=== PATIENT | female | born 1985 | race American Indian/Alaskan Native ===

== ENCOUNTER 2018-01-12 20:52 | Emergency (ER) | payer OTHER ==
[2018-01-12] MEDS ORDERED: Sodium Chloride 0.9% 10 ML Syringe FLUSH PRN (21:22)
[2018-01-12] MEDS ORDERED: Ketorolac 30 MG/ML SDV IVPUSH ONE (21:22)
[2018-01-12] MEDS ORDERED: Ondansetron 4 MG/2 ML SDV IVPUSH ONE (21:22)
[2018-01-12] MEDS ORDERED: Sodium Chloride 0.9% 2.5 ML Syringe FLUSH PRN (21:22)
[2018-01-12] MEDS ORDERED: Sodium Chloride 0.9% 1,000 ML IV ONE (21:22)
[2018-01-12] MEDS ORDERED: Morphine 10 MG/ML Syringe IVPUSH ONE ×2 (21:26→23:03)
--- NOTE | 2018-01-12 21:26 | EDM.PDOC ---
ED HPI GENERAL MEDICAL PROBLEM - General Chief Complaint: Abdominal Pain Stated Complaint: PT HAS STOMACH PAINS Time Seen by Provider: 01/12/18 21:14 - History of Present Illness INITIAL COMMENTS - FREE TEXT/NARRATIVE: HISTORY AND PHYSICAL: History of present illness: The patient is a 32-year-old female who presents with 3 days of nausea without vomiting diarrhea, 2-3 times a day and lower abdominal pain which she says is more on the right and radiates to her back. The patient says she started her period and she frequently gets diarrhea with her. So she wasn't concerned about that but the pain is different than her usual cramping pain. The patient's that she has had problems with her ovaries in the past and was working with a physician until he retired and never followed up afterwards. She has not had fever or flank pain and no urinary symptoms. She has had no vaginal discharge she has no upper abdominal pain. She is very vague with her history but does tell me that she had a gastric bypass and C-sections in the past but otherwise no other abdominal surgeries. The patient is not taking anything at home for the discomfort. She says that the pain will intermittently "double her over". The patient denies any fever chills cough runny nose or sore throat Review of systems: As per history of present illness and below otherwise all systems reviewed and negative. Past medical history: As per history of present illness and as reviewed below otherwise noncontributory. Surgical history: As per history of present illness and as reviewed below otherwise noncontributory. Social history: No reported history of drug or alcohol abuse. Family history: As per history of present illness and as reviewed below otherwise noncontributory. Physical exam: General: Well-developed well-nourished female who looks nontoxic of my evaluation vital signs are noted by me. HEENT: Atraumatic, normocephalic, pupils reactive, negative for conjunctival pallor or scleral icterus, mucous membranes moist, throat clear, neck supple, nontender, trachea midline. Lungs: Clear to auscultation, breath sounds equal bilaterally, chest nontender. Heart: S1S2, regular rate and rhythm no overt murmurs Abdomen: Soft, nondistended, hypoactive bowel sounds and there is minimal tenderness in the right lower quadrant on deep palpation without midline or left lower quadrant tenderness. There is no rebound or guarding. Negative for masses or hepatosplenomegaly. Negative for costovertebral tenderness. Pelvis: Stable nontender. Genitourinary: Deferred. Rectal: Deferred. Extremities: Atraumatic, negative for cords or calf pain. Neurovascular unremarkable. Neuro: Awake, alert, oriented. Cranial nerves II through XII unremarkable. Cerebellum unremarkable. Motor and sensory unremarkable throughout. Exam nonfocal. Diagnostics: CBC CMP UA UCG CT scan of the abdomen and pelvis Therapeutics: IV fluids Zofran and morphine Patient and significant other bedside are aware of all testing results and this case has also been discussed with Dr. Davis at [phone]. He wants the patient to be given pain medicines for home and eat a low-fat diet and he will follow her in the clinic. Labs are all normal and her pain is controllable with medications he feels that this can be addressed on an outpatient basis. I will give the patient information to call the clinic and I've discussed with her reasons to return. I will give her Zofran and [place] via [employer] for home Impression: Cholelithiasis/biliary colic Definitive disposition and diagnosis as appropriate pending reevaluation and review of above. Abdominal Pain Score (Numeric/FACES): 10 - Related Data Allergies Allergy/AdvReac Type Severity Reaction Status Date / Time No Known Allergies Allergy Verified 01/12/18 21:12 Home Meds: Home Meds Drospirenone/Ethinyl Estradiol [Kate 28] 1 tab PO DAILY 09/08/14 [History] DULoxetine HCl [Duloxetine HCl] 30 mg PO DAILY 07/09/15 [History] traZODone 50 mg PO BEDTIME 01/12/18 [History] Past Medical History - Past Health History Medical/Surgical History: Denies Medical/Surgical History - Past Surgical History Other GI Surgeries/Procedures: Gastric bypass surgery Social & Family History - Tobacco Use Smoking Status *Q: Current Every Day Smoker Years of Tobacco use: 10 Packs/Tins Daily: 0.5 - Alcohol Use Days Per Week of Alcohol Use: 7 Number of Drinks Per Day: 25 Total Drinks Per Week: 175 - Recreational Drug Use Recreational Drug Use: No ED ROS GENERAL - Review of Systems Review Of Systems: ROS reveals no pertinent complaints other than HPI. ED EXAM, GENERAL - Physical Exam Exam: See Below (see dictation) Course - Vital Signs Last Recorded V/S: Last Vital Signs Temp 36.3 C 01/12/18 21:14 Pulse 81 01/12/18 21:14 Resp 18 01/12/18 21:14 BP 142/75 H 01/12/18 21:14 Pulse Ox 97 01/12/18 21:14 - Orders/Labs/Meds Orders: Active Orders 24 hr Category Date Time Status Abdomen Pelvis w Cont [CT] Stat Exams 01/12/18 21:22 Taken HCG QUALITATIVE,URINE [URCHEM] Stat Lab 01/12/18 21:26 Ordered UA W/MICROSCOPIC [URIN] Stat Lab 01/12/18 21:26 Ordered Sodium Chloride 0.9% [Saline Flush] Med 01/12/18 21:22 Active 10 ml FLUSH ASDIRECTED PRN Sodium Chloride 0.9% [Saline Flush] Med 01/12/18 21:22 Active 2.5 ml FLUSH ASDIRECTED PRN Saline Lock Insert [OM.PC] Stat Oth 01/12/18 21:21 Ordered Medication Orders Sodium Chloride (Saline Flush) 10 ml FLUSH ASDIRECTED PRN PRN Reason: Keep Vein Open Last Admin: 01/12/18 21:39 Dose: 10 ml Sodium Chloride (Saline Flush) 2.5 ml FLUSH ASDIRECTED PRN PRN Reason: Keep Vein Open Last Admin: 01/12/18 21:39 Dose: 2.5 ml Labs: Laboratory Tests 01/12/18 01/12/18 01/12/18 Range/Units 21:26 21:26 21:34 WBC 6.96 (4.0-11.0) K/uL RBC 5.10 (4.30-5.90) M/uL Hgb 11.9 L (12.0-16.0) g/dL Hct 37.4 (36.0-46.0) % MCV 73.3 L (80.0-98.0) fL MCH 23.3 L (27.0-32.0) pg MCHC 31.8 (31.0-37.0) g/dL RDW Std Deviation 46.8 (28.0-62.0) fl RDW Coeff of Briana 17 H (11.0-15.0) % Plt Count 318 (150-400) K/uL MPV 10.60 (7.40-12.00) fL Neut % (Auto) 48.3 (48.0-80.0) % Lymph % (Auto) 41.7 H (16.0-40.0) % Stokes % (Auto) 6.3 (0.0-15.0) % Eos % (Auto) 2.7 (0.0-7.0) % Baso % (Auto) 1.0 (0.0-1.5) % Neut # (Auto) 3.4 (1.4-5.7) K/uL Lymph # (Auto) 2.9 H (0.6-2.4) K/uL Stokes # (Auto) 0.4 (0.0-0.8) K/uL Eos # (Auto) 0.2 (0.0-0.7) K/uL Baso # (Auto) 0.1 (0.0-0.1) K/uL Nucleated RBC % 0.0 /100WBC Nucleated RBCs # 0 K/uL Sodium (136-145) mmol/L Potassium (3.5-5.1) mmol/L Chloride (98-107) mmol/L Carbon Dioxide (21.0-32.0) mmol/L BUN (7.0-18.0) mg/dL Creatinine (0.6-1.0) mg/dL Est Cr Clr Drug Dosing mL/min Estimated GFR (MDRD) ml/min Glucose (74-106) mg/dL Calcium (8.5-10.1) mg/dL Total Bilirubin (0.2-1.0) mg/dL AST (15-37) IU/L ALT (14-63) IU/L Alkaline Phosphatase (46-116) U/L Total Protein (6.4-8.2) g/dL Albumin (3.4-5.0) g/dL Globulin (2.0-3.5) g/dL Albumin/Globulin Ratio (1.3-2.8) Urine Color YELLOW Urine Appearance CLEAR Urine pH 7.0 (5.0-8.0) Ur Specific [place] 1.020 (1.001-1.035) Urine Protein NEGATIVE (NEGATIVE) mg/dL Urine Glucose (UA) NEGATIVE (NEGATIVE) mg/dL Urine Ketones NEGATIVE (NEGATIVE) mg/dL Urine Occult Blood NEGATIVE (NEGATIVE) Urine Nitrite NEGATIVE (NEGATIVE) Urine Bilirubin NEGATIVE (NEGATIVE) Urine Urobilinogen 1.0 (<2.0) EU/dL Ur Leukocyte Esterase NEGATIVE (NEGATIVE) Urine RBC 0-2 (0-2/HPF) Urine WBC 2-4 (0-5/HPF) Ur Epithelial Cells FEW (NONE-FEW) Urine Bacteria FEW (NEGATIVE) Urine Mucus MODERATE (NONE-MOD) Urine HCG, Qual NEGATIVE (NEGATIVE) 01/12/18 Range/Units 21:34 WBC (4.0-11.0) K/uL RBC (4.30-5.90) M/uL Hgb (12.0-16.0) g/dL Hct (36.0-46.0) % MCV (80.0-98.0) fL MCH (27.0-32.0) pg MCHC (31.0-37.0) g/dL RDW Std Deviation (28.0-62.0) fl RDW Coeff of Briana (11.0-15.0) % Plt Count (150-400) K/uL MPV (7.40-12.00) fL Neut % (Auto) (48.0-80.0) % Lymph % (Auto) (16.0-40.0) % Stokes % (Auto) (0.0-15.0) % Eos % (Auto) (0.0-7.0) % Baso % (Auto) (0.0-1.5) % Neut # (Auto) (1.4-5.7) K/uL Lymph # (Auto) (0.6-2.4) K/uL Stokes # (Auto) (0.0-0.8) K/uL Eos # (Auto) (0.0-0.7) K/uL Baso # (Auto) (0.0-0.1) K/uL Nucleated RBC % /100WBC Nucleated RBCs # K/uL Sodium 138 (136-145) mmol/L Potassium 4.4 (3.5-5.1) mmol/L Chloride 104 (98-107) mmol/L Carbon Dioxide 23.7 (21.0-32.0) mmol/L BUN 18 (7.0-18.0) mg/dL Creatinine 0.7 (0.6-1.0) mg/dL Est Cr Clr Drug Dosing 109.01 mL/min Estimated GFR (MDRD) > 60.0 ml/min Glucose 92 (74-106) mg/dL Calcium 8.7 (8.5-10.1) mg/dL Total Bilirubin 0.2 (0.2-1.0) mg/dL AST 20 (15-37) IU/L ALT 18 (14-63) IU/L Alkaline Phosphatase 73 (46-116) U/L Total Protein 7.7 (6.4-8.2) g/dL Albumin 3.7 (3.4-5.0) g/dL Globulin 4.0 H (2.0-3.5) g/dL Albumin/Globulin Ratio 0.9 L (1.3-2.8) Urine Color Urine Appearance Urine pH (5.0-8.0) Ur Specific [place] (1.001-1.035) Urine Protein (NEGATIVE) mg/dL Urine Glucose (UA) (NEGATIVE) mg/dL Urine Ketones (NEGATIVE) mg/dL Urine Occult Blood (NEGATIVE) Urine Nitrite (NEGATIVE) Urine Bilirubin (NEGATIVE) Urine Urobilinogen (<2.0) EU/dL Ur Leukocyte Esterase (NEGATIVE) Urine RBC (0-2/HPF) Urine WBC (0-5/HPF) Ur Epithelial Cells (NONE-FEW) Urine Bacteria (NEGATIVE) Urine Mucus (NONE-MOD) Urine HCG, Qual (NEGATIVE) Meds: Medications Generic Name Dose Route Start Last Admin Trade Name Freq PRN Reason Stop Dose Admin Sodium Chloride 10 ml 01/12/18 21:22 01/12/18 21:39 Saline Flush FLUSH 10 ml ASDIRECTED PRN Administration Keep Vein Open Sodium Chloride 2.5 ml 01/12/18 21:22 01/12/18 21:39 Saline Flush FLUSH 2.5 ml ASDIRECTED PRN Administration Keep Vein Open Discontinued Medications Generic Name Dose Route Start Last Admin Trade Name Freq PRN Reason Stop Dose Admin Sodium Chloride 1,000 mls @ 999 mls/hr 01/12/18 21:22 01/12/18 21:39 Normal Saline IV 01/12/18 22:22 999 mls/hr STAT ONE Administration Iopamidol 100 ml 01/12/18 22:25 01/12/18 22:26 Isovue Multipack-370 (76%) IVPUSH 04/04/18 22:26 100 ml ONETIME ONE Administration Ketorolac Tromethamine 30 mg 01/12/18 21:22 01/12/18 21:40 Toradol IVPUSH 01/12/18 21:23 Not Given ONETIME ONE Morphine Sulfate 5 mg 01/12/18 21:26 01/12/18 21:39 Morphine IVPUSH 01/12/18 21:27 5 mg ONETIME ONE Administration Morphine Sulfate 5 mg 01/12/18 23:03 Morphine IVPUSH 01/12/18 23:04 ONETIME ONE Ondansetron HCl 4 mg 01/12/18 21:22 01/12/18 21:39 Zofran IVPUSH 01/12/18 21:23 4 mg ONETIME ONE Administration Departure - Departure Time of Disposition: 23:11 Disposition: Home, Self-Care 01 Condition: Good Clinical Impression: Biliary colic Cholelithiasis Qualifiers: Cholelithiasis location: gallbladder Cholecystitis presence: without cholecystitis Biliary obstruction: without biliary obstruction Qualified Code(s) : K80.20 - Calculus of gallbladder without cholecystitis without obstruction - Discharge Information Referrals: PCP,None [Primary Care Provider] - Forms: ED Department Discharge Additional Instructions: The following information is given to patients seen in the emergency department who are being discharged to home. This information is to outline your options for follow-up care. We provide all patients seen in our emergency department with a follow-up referral. The need for follow-up, as well as the timing and circumstances, are variable depending upon the specifics of your emergency department visit. If you don't have a primary care physician on staff, we will provide you with a referral. We always advise you to contact your personal physician following an emergency department visit to inform them of the circumstance of the visit and for follow-up with them and/or the need for any referrals to a consulting specialist. The emergency department will also refer you to a specialist when appropriate. This referral assures that you have the opportunity for followup care with a specialist. All of these measure are taken in an effort to provide you with optimal care, which includes your followup. Under all circumstances we always encourage you to contact your private physician who remains a resource for coordinating your care. When calling for followup care, please make the office aware that this follow-up is from your recent emergency room visit. If for any reason you are refused follow-up, please contact the [facility] emergency department at and ask to speak to the emergency department charge nurse. [facility] [address] [place] [id number] Please call the clinic at 8 AM in the morning to schedule an appointment with Dr. Davis as we discussed. Please eat a low-fat diet and push fluids and small bites of bland foods. Use Zofran and [place] your given B Insty Meds as needed and return to ER as needed and as discussed. - My Orders Last 24 Hours: My Active Orders 01/12/18 21:21 Saline Lock Insert [OM.PC] Stat 01/12/18 21:22 Abdomen Pelvis w Cont [CT] Stat Sodium Chloride 0.9% [Saline Flush] 10 ml FLUSH ASDIRECTED PRN Sodium Chloride 0.9% [Saline Flush] 2.5 ml FLUSH ASDIRECTED PRN 01/12/18 21:26 HCG QUALITATIVE,URINE [URCHEM] Stat UA W/MICROSCOPIC [URIN] Stat - Assessment/Plan Last 24 Hours: My Active Orders 01/12/18 21:21 Saline Lock Insert [OM.PC] Stat 01/12/18 21:22 Abdomen Pelvis w Cont [CT] Stat Sodium Chloride 0.9% [Saline Flush] 10 ml FLUSH ASDIRECTED PRN Sodium Chloride 0.9% [Saline Flush] 2.5 ml FLUSH ASDIRECTED PRN 01/12/18 21:26 HCG QUALITATIVE,URINE [URCHEM] Stat UA W/MICROSCOPIC [URIN] Stat
[2018-01-12 22:02] LABS: CHLORIDE,CL 104 mmol/L (98-107); SODIUM,NA 138 mmol/L (136-145)
[2018-01-12] MEDS ORDERED: Iopamidol 755 MG/ML 200 ML Multipack Bottle IVPUSH ONE (22:25)
[2018-01-12 23:40] VITALS: BP 123/77
--- NOTE | 2018-01-13 10:23 | CT ---
EXAM DATE: 01/12/18 PATIENT'S AGE: 32 Patient: KIERA BUSBY Facility: [place], [place] Site . Site : [id number] Study: CT Abdomen/Pelvis [id number]/4/2018 10:32:51 PM Ordering Physician: Naomie Guzman Final Report: INDICATION: Abdominal pain with nausea TECHNIQUE: CT abdomen and pelvis acquired with IV contrast. 100 cc Isovue 370 COMPARISON: 09/06/2012 FINDINGS: Lower chest: Unremarkable. Liver: Unremarkable. Spleen: Unremarkable. Pancreas: Unremarkable. Gallbladder and bile ducts: The gallbladder is distended with sludge and multiple small gallstones. No gallbladder wall thickening. Dilatation of the intra hepatic biliary ducts and common bile duct. No obvious obstructing calculi. If LFTs and alkaline phosphatase are elevated, consider MRCP. Kidneys: Unremarkable. Adrenal glands: Unremarkable. GI tract: Evidence of prior bariatric surgery. Jany fecal retention. Appendix is normal. Vascular structures: Unremarkable. Lymph nodes: Unremarkable. Miscellaneous: Unremarkable. No free air or significant free fluid. Pelvic Organs: Unremarkable. Bones: Unremarkable for age. IMPRESSION: The gallbladder is distended with sludge and multiple small gallstones. No gallbladder wall thickening or pericholecystic fluid. Mild dilatation of the intrahepatic biliary ducts and common bile duct but no obvious obstructing calculi or stricture. Right upper quadrant ultrasound may be helpful to further characterize the patient has right upper quadrant pain. Correlate with abnormal LFTs and alkaline phosphatase. If these values are elevated, consider MRCP. Dictated by Randell Deng MD @ 01/12/2018 10:50:43 PM Dictated by: Randell Deng MD @ 01/12/2018 22:50:49 (Electronic Signature) Report Signed by Proxy. CAORLINA
== END 2018-01-12 23:29 | disposition home or self-care (01) ==
LOC: MW.ED 20:52
DX: K80.70 Calculus of gallbladder and bile duct without cholecystitis without obstruction (principal); F17.210 Nicotine dependence, cigarettes, uncomplicated; Z79.899 Other long term (current) drug therapy
CPT/HCPCS: 36415; 74177; 80053; 81001; 81025; 85025; 96361; 96374; 96375; 96376; 99284; J2270; J2405; J7040; Q9967; 99283

== ENCOUNTER 2018-02-14 06:49 | Day surgery (SDC) | payer OTHER ==
[~2018-02-14 06:49] MED LIST: Lactated Ringers 1,000 ML IV SCH; cefOXitin 2 GM in Premix Bag 1 BAG IV ONE
[2018-02-14] MEDS ORDERED: Scopolamine 1.5 MG Transdermal Patch TRDERM PRN (07:10)
--- NOTE | 2018-02-14 07:14 | PCM.PREANE ---
Preanesthetic Assessment - Anesthesia/Transfusion/Family Hx Anesthesia History: Prior Anesthesia Without Reaction Family History of Anesthesia Reaction: No Transfusion History: Prior Transfusion Without Reaction Intubation History: Unknown - Review of Systems General: No Symptoms Pulmonary: No Symptoms Cardiovascular: No Symptoms Gastrointestinal: Abdominal Pain Neurological: No Symptoms Other: Reports: None - Physical Assessment Height: 1.68 m Weight: 87.543 kg ASA Class: 2 Mental Status: Alert & Oriented x3 Airway Class: Mallampati = 2 Dentition: Reports: Normal Dentition, Broken Tooth/Teeth (small chip uppr front incisor) Thyro-Mental Finger Breadths: 3 Mouth Opening Finger Breadths: 3 ROM/Head Extension: Full Lungs: Clear to Auscultation, Normal Respiratory Effort Cardiovascular: Regular Rate, Regular Rhythm - Lab Values: Laboratory Last Values Urine HCG, Qual NEGATIVE (NEGATIVE) 02/14/18 06:50 - Allergies Allergies/Adverse Reactions: Allergies Allergy/AdvReac Type Severity Reaction Status Date / Time No Known Allergies Allergy Verified 02/08/18 10:47 - Blood Blood Available: No - Anesthesia Plan Pre-Op Medication Ordered: None - Acknowledgements Anesthesia Type Planned: General Anesthesia Pt an Appropriate Candidate for the Planned Anesthesia: Yes Alternatives and Risks of Anesthesia Discussed w Pt/Guardian: Yes Pt/Guardian Understands and Agrees with Anesthesia Plan: Yes PreAnesthesia Questionnaire - Past Health History Medical/Surgical History: Denies Medical/Surgical History HEENT History: Reports: Other (See Below) Other HEENT History: wears glasses Gastrointestinal History: Reports: None Genitourinary History: Reports: None 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: Neurological History: Reports: Other (See Below) (h/o migraines, not any more) Psychiatric History: Reports: Anxiety, Depression, Suicide Attempt Endocrine/Metabolic History: Reports: Obesity/BMI 30+ Hematologic History: Reports: Anemia, Blood Transfusion(s) - Past Surgical History Head Surgeries/Procedures: Reports: None GI Surgical History: Reports: Bariatric Procedure Female Surgical History: Reports: Section (x2) - SUBSTANCE USE Smoking Status *Q: Current Every Day Smoker Tobacco Use Within Last Twelve Months: Cigarettes Days Per Week of Alcohol Use: 7 Number of Drinks Per Day: 25 Total Drinks Per Week: 175 Recreational Drug Use History: No - HOME MEDS Home Medications: Home Meds Drospirenone/Ethinyl Estradiol [Kate 28] 1 tab PO DAILY 09/08/14 [History] DULoxetine HCl [Duloxetine HCl] 20 mg PO DAILY 07/09/15 [History] traZODone 100 mg PO BEDTIME 01/12/18 [History] Ibuprofen 1 - 2 tab PO ASDIRECTED PRN 02/08/18 [History] Ondansetron [Zofran ODT] 4 mg SL ASDIRECTED PRN 02/08/18 [History] - CURRENT (IN HOUSE) MEDS Current Meds: Current Medications Lactated Ringer's (Ringers, Lactated) 1,000 mls @ 125 mls/hr IV ASDIRECTED MAY Discontinued Medications Cefoxitin Sodium 2 gm/ Premix 50 mls @ 100 mls/hr IV ONETIME ONE Stop: 02/14/18 06:29
[2018-02-14] MEDS ORDERED: Rocuronium 10 MG/ML 10 ML Syringe ONE (07:26)
[2018-02-14] MEDS ORDERED: Lidocaine 2% 5 ML SDV ONE (07:26)
[2018-02-14] MEDS ORDERED: Ondansetron 4 MG/2 ML SDV ONE (07:26)
[2018-02-14] MEDS ORDERED: Propofol 200 MG/20 ML SDV ONE (07:27)
[2018-02-14] MEDS ORDERED: fentaNYL 100 MCG/2 ML SDV ONE ×3 (07:27→09:20)
[2018-02-14] MEDS ORDERED: ceFAZolin 1 GM Vial ONE (07:27)
[2018-02-14] MEDS ORDERED: Bupivacaine 0.5% 10 ML SDV ONE (07:27)
[2018-02-14] MEDS ORDERED: Midazolam 1 MG/ML 2 ML SDV ONE (07:27)
[2018-02-14] MEDS ORDERED: Dexamethasone 4 MG/ML 5 ML MDV ONE (08:05)
[2018-02-14] MEDS ORDERED: diphenhydrAMINE 50 MG/ML SDV ONE (08:05)
[2018-02-14] MEDS ORDERED: fentaNYL 100 MCG/2 ML SDV IVPUSH PRN (08:26)
[2018-02-14] MEDS ORDERED: Neostigmine Methylsulfate 1 MG/ML 5 ML Syringe ONE (09:01)
[2018-02-14] MEDS ORDERED: Glycopyrrolate 0.2 MG/ML SDV ONE (09:01)
[2018-02-14] MEDS ORDERED: Ketorolac 30 MG/ML SDV ONE (09:02)
[2018-02-14] MEDS ORDERED: Morphine 4 MG/ML Syringe IVPUSH PRN (09:50)
[2018-02-14] MEDS ORDERED: traMADol 50 MG Tab PO PRN (09:51)
--- NOTE | 2018-02-14 09:54 | PCM.OPNOTE ---
- General Post-Op/Procedure Note Date of Surgery/Procedure: 02/14/18 Operative Procedure(s): Laparoscopic cholecystectomy Pre Op Diagnosis: Cholelithiasis Post-Op Diagnosis: Cholelithiasis w/ cholecystitis Anesthesia Technique: General ET Tube (ASA II) Primary Surgeon: Jaren Davis Fluid Replacement, Intraop: 1,800 EBL in mLs: 10 Condition: Good Free Text/Narrative:: Dictation [id number] Dictation [id number] CPT CODE [id number]
[2018-02-14] MEDS ORDERED: Lactated Ringers 1,000 ML IV SCH (10:00)
[2018-02-14] MEDS ORDERED: Promethazine 25 MG/ML SDV IM ONE (10:22)
[2018-02-14] MEDS ORDERED: Promethazine 25 MG/ML SDV ONE (10:23)
--- NOTE | 2018-02-14 10:43 | PCM.POSTAN ---
POST ANESTHESIA ASSESSMENT - MENTAL STATUS Mental Status: Alert, Oriented - RESPIRATORY Respiratory Status: Respiratory Rate WNL - CARDIOVASCULAR CV Status: Pulse Rate WNL, Blood Pressure Stable - GASTROINTESTINAL GI Status: No Symptoms - PAIN Pain Score: 6 - POST OP HYDRATION Hydration Status: Adequate & Stable - OBSERVATIONS Free Text/Narrative:: no anesthesia problems
--- NOTE | 2018-02-14 12:59 | PCM48HPAN ---
Post Anesthesia Note - EVALUATION WITHIN 48HRS OF ANESTHETIC Vital Signs in Normal Range: Yes Patient Participated in Evaluation: Yes Respiratory Function Stable: Yes Airway Patent: Yes Cardiovascular Function Stable: Yes Hydration Status Stable: Yes Pain Control Satisfactory: Yes Nausea and Vomiting Control Satisfactory: Yes Mental Status Recovered: Yes Resp Rate: 10 - COMMENTS/OBSERVATIONS Free Text/Narrative:: no anesthesia problems
[2018-02-15 05:59] VITALS: BP 130/80
--- NOTE | 2018-02-15 09:34 | OR ---
SURGEON: Jaren Davis M.D. DATE OF PROCEDURE: 02/14/2018 OPERATION PERFORMED: Laparoscopic cholecystectomy. ANESTHESIA: General endotracheal. ASA CLASSIFICATION: II. PREOPERATIVE DIAGNOSIS: Symptomatic cholelithiasis. POSTOPERATIVE DIAGNOSIS: Cholelithiasis with cholecystitis. INTRAOPERATIVE FLUID REPLACEMENT: 1800 mL of crystalloid. ESTIMATED BLOOD LOSS: 10 mL. DESCRIPTION OF PROCEDURE: The patient was taken to the operating room and placed on the operating table in the supine position. Time-out was called for appropriate identification of the patient and procedure. Thigh-high TEDs and sequential compression boots had been placed prior. Following satisfactory attainment of general endotracheal anesthesia, a Ayala catheter was placed in the patient's urinary bladder. The abdomen was prepped with DuraPrep solution. Sterile drapes were applied. Skin just below the umbilicus was infiltrated with 0.5% Marcaine solution. The skin incision was made and deepened into the subcutaneous tissue obtaining hemostasis with the use of electrocautery. The Veress needle was introduced into the peritoneal cavity. Saline drop test was positive. Carbon dioxide pneumoperitoneum was established with the release set at 13 cm of water. Once we had a satisfactory pneumoperitoneum, a 5-mm camera and port were placed through the infraumbilical incision. The patient was now positioned with her feet down and rolled to the left. Under camera vision, 12-mm subxiphoid, 5-mm midclavicular, and 5-mm anterior axillary ports were placed. Each incision had preemptively been infiltrated with 0.5% Marcaine solution. The gallbladder was grasped and numerous adhesions were taken down with a combination of sharp and blunt dissection. The cholecystohepatic triangle was dissected free. Cystic duct was moderately enlarged, approximately 5 mm. Dissection was carried out through the cholecystohepatic triangle identifying the entire length of the cystic duct and obtaining a good critical view. A single clip was placed on the gallbladder side. Two clips were placed distally and the cystic duct partially transected. At that point, 2 small stones were encountered and these were removed and recovered. A 3rd clip was placed on the distal cystic duct to completely occlude it. The cystic duct was then divided. The cystic artery was doubly clipped proximally with a single clip distally and divided with laparoscopic Metzenbaum scissor. The gallbladder was then dissected away from its bed using electrocautery. Once the gallbladder was amputated, this was placed in an Endopouch. The bed of the gallbladder was inspected for hemostasis and small bleeding sites were electrocoagulated. The bed of the gallbladder was irrigated with saline solution. All fluid was aspirated. Surgicel was placed into the bed of the gallbladder. No bile leak was identified. The clips appeared secure on the cystic duct. The right hemidiaphragm was then irrigated with 250 mL of saline containing 20 mL of 0.5% Marcaine solution. The gallbladder was then extracted through the subxiphoid port. That incision did have to be lengthened to do it and in the course of attempting to remove the gallbladder, the bag ruptured. She did have multiple small stones and 1 large stone. No stones were spilled into the abdominal cavity, but the incision did require lengthening and some bile was spilled. Once the gallbladder was extracted, the 12 mm port was replaced and the skin lightly occluded over this with towel clips while the bed of the gallbladder was again inspected and all fluid was aspirated. Once that was accomplished, the towel clips were removed and the 12-mm port was removed. Under camera vision, the 5-mm midclavicular and anterior axillary ports were removed and finally the infraumbilical camera and port were removed. The wounds were inspected for hemostasis, no other bleeding was noted. The subxiphoid fascia was closed with interrupted 0 Vicryl. The subxiphoid and infraumbilical incisions were closed in 2 layers approximating the subcutaneous tissue with 3-0 Vicryl and the skin with subcuticular 4-0 Monocryl. The anterior axillary and midclavicular incisions were closed with subcuticular 4-0 Monocryl. All incisions were Steri-Stripped and dressed with sterile Tegaderm pads. Sponge, needle, and instrument counts were all correct. Ayala catheter was removed prior to emergence from anesthesia. Following emergence from anesthesia and extubation, the patient was taken to recovery room in stable condition. JAMIL ROBLES /[id number] [place]
== END 2018-02-14 12:50 | disposition home or self-care (01) ==
LOC: MW.SDS 06:49
PROVIDERS: ATTEND Surgery
DX: K81.1 Chronic cholecystitis (principal); F17.210 Nicotine dependence, cigarettes, uncomplicated; F41.9 Anxiety disorder, unspecified; F32.9 Major depressive disorder, single episode, unspecified; E66.9 Obesity, unspecified; Z68.30 Body mass index [BMI] 30.0-30.9, adult; Z88.5 Allergy status to narcotic agent; Z79.899 Other long term (current) drug therapy
CPT/HCPCS: 47562; 81025; A9270; J1100; J1200; J1885; J2250; J2405; J2550; J3010; J7120; J0690; J2704

== ENCOUNTER 2018-02-20 18:06 | Observation (INO) | payer OTHER ==
[2018-02-20] MEDS ORDERED: Sodium Chloride 0.9% 10 ML Syringe FLUSH PRN ×2 (18:13→21:43)
[2018-02-20] MEDS ORDERED: Sodium Chloride 0.9% 2.5 ML Syringe FLUSH PRN ×2 (18:13→21:43)
[2018-02-20] MEDS ORDERED: Ondansetron 4 MG/2 ML SDV IVPUSH ONE (18:14)
[2018-02-20] MEDS ORDERED: Morphine 4 MG/ML Syringe IVPUSH ONE ×2 (18:14→18:57)
--- NOTE | 2018-02-20 18:15 | EDM.PDOC ---
<Megan Akbar - Last Filed: 02/20/18 21:10> ED HPI GENERAL MEDICAL PROBLEM - General Stated Complaint: UNK Time Seen by Provider: 02/20/18 18:10 - History of Present Illness INITIAL COMMENTS - FREE TEXT/NARRATIVE: This is Dr. Akbar dictating an addendum note as I assumed care of this case at 7 PM. The story that was related to me was that the patient had nausea and had an episode of vomiting and after the episode of vomiting is when she felt the significant ripping and tearing in her abdomen and the pain started. The patient underwent lap was A cholecystectomy on February [address] Davis and I reviewed that up not and there were no complications. The clinical impression at the time of the surgery was cholecystitis with cholelithiasis. At the time of transfer of care labs were pending and the patient does have a WBC count of 13.25 a potassium of 3.0 and a lipase of 389. The patient is currently going to CT scan at 19 55pm as there were some delays with her blood work. We'll continue to monitor her results and reevaluate her pain level and discuss with surgery on-call as indicated. 2103: Case d/w Dr Lewis who will come and see the pt and plan admit. She will review CT scan and write admitting orders. I will give the patient some IV fluids and she looks very comfortable in the bed and vital signs are stable. is at bedside and is aware of this care plan. Diagnostics that were performed CBC CMP amylase lipase CT scan of the abdomen and pelvis patient did not produce a UA so that was canceled Therapeutics--patient was given morphine by Dr. Tabor and I gave a bolus of IV fluids. Impression--postoperative pain, rule out bile leak, elevated lipase stable - Related Data Allergies Allergy/AdvReac Type Severity Reaction Status Date / Time No Known Allergies Allergy Verified 02/20/18 18:13 Home Meds: Home Meds Drospirenone/Ethinyl Estradiol [Kate 28] 1 tab PO DAILY 09/08/14 [History] traZODone 100 mg PO BEDTIME 01/12/18 [History] FLUoxetine [PROzac] 10 mg PO DAILY 02/20/18 [History] traMADol [Ultram] 50 mg PO DAILY 02/20/18 [History] Course - Vital Signs Last Recorded V/S: Last Vital Signs Temp 97.4 F 02/21/18 12:00 Pulse 103 H 02/21/18 12:00 Resp 22 H 02/21/18 12:00 BP 131/82 02/21/18 12:00 Pulse Ox 91 L 02/21/18 12:00 - Orders/Labs/Meds Orders: Active Orders 24 hr Category Date Time Status Abdomen Pelvis w Cont [CT] Stat Exams 02/20/18 18:35 Taken Sodium Chloride 0.9% [Saline Flush] Med 02/20/18 18:13 Active 10 ml FLUSH ASDIRECTED PRN Sodium Chloride 0.9% [Saline Flush] Med 02/20/18 18:13 Active 2.5 ml FLUSH ASDIRECTED PRN Saline Lock Insert [OM.PC] Stat Oth 02/20/18 18:14 Ordered Medication Orders Diphenhydramine HCl (Benadryl) 25 mg IVPUSH Q4H PRN PRN Reason: Itching Hydromorphone HCl (Dilaudid Polygraph Technician 6 Mg In Ns 30 Ml) 6 mg IV ASDIRECTED PRN; Protocol PRN Reason: Abdominal Pain Last Admin: 02/21/18 09:05 Dose: 6 mg Lactated Ringer's (Ringers, Lactated) 1,000 mls @ 200 mls/hr IV ASDIRECTED AMY Last Admin: 02/20/18 22:54 Dose: 200 mls/hr Piperacillin Sod/Tazobactam (Sod 3.375 gm/ Sodium Chloride) 50 mls @ 100 mls/ hr IV Q6H [facility] Metoclopramide HCl (Reglan) 5 mg IVPUSH Q6H PRN PRN Reason: Nausea Nystatin (Mycostatin) 5 ml PO QID [facility] Ondansetron HCl (Zofran) 4 mg IVPUSH Q6H PRN PRN Reason: Nausea/Vomiting Pantoprazole Sodium (Protonix Iv) 40 mg IVPUSH DAILY [facility] Last Admin: 02/21/18 09:03 Dose: 40 mg Promethazine HCl (Phenergan) 25 mg IM Q6H PRN PRN Reason: Nausea Sodium Chloride (Saline Flush) 10 ml FLUSH ASDIRECTED PRN PRN Reason: Keep Vein Open Last Admin: 02/20/18 19:04 Dose: 10 ml Sodium Chloride (Saline Flush) 2.5 ml FLUSH ASDIRECTED PRN PRN Reason: Keep Vein Open Last Admin: 02/20/18 19:05 Dose: 2.5 ml Sodium Chloride (Saline Flush) 10 ml FLUSH ASDIRECTED PRN PRN Reason: Keep Vein Open Sodium Chloride (Saline Flush) 2.5 ml FLUSH ASDIRECTED PRN PRN Reason: Keep Vein Open Labs: Laboratory Tests 02/20/18 02/20/18 02/20/18 Range/Units 18:12 18:12 18:12 WBC 13.25 H (4.0-11.0) K/uL RBC 4.33 (4.30-5.90) M/uL Hgb 10.0 L (12.0-16.0) g/dL Hct 31.7 L (36.0-46.0) % MCV 73.2 L (80.0-98.0) fL MCH 23.1 L (27.0-32.0) pg MCHC 31.5 (31.0-37.0) g/dL RDW Std Deviation 48.2 (28.0-62.0) fl RDW Coeff of Briana 18 H (11.0-15.0) % Plt Count 315 (150-400) K/uL MPV 10.60 (7.40-12.00) fL Neut % (Auto) 71.4 (48.0-80.0) % Lymph % (Auto) 17.3 (16.0-40.0) % [place] % (Auto) 10.4 (0.0-15.0) % Eos % (Auto) 0.7 (0.0-7.0) % Baso % (Auto) 0.2 (0.0-1.5) % Neut # (Auto) 9.5 H (1.4-5.7) K/uL Lymph # (Auto) 2.3 (0.6-2.4) K/uL [place] # (Auto) 1.4 H (0.0-0.8) K/uL Eos # (Auto) 0.1 (0.0-0.7) K/uL Baso # (Auto) 0.0 (0.0-0.1) K/uL Nucleated RBC % 0.0 /100WBC Nucleated RBCs # 0 K/uL Sodium 143 (136-145) mmol/L Potassium 3.0 L (3.5-5.1) mmol/L Chloride 105 (98-107) mmol/L Carbon Dioxide 25.5 (21.0-32.0) mmol/L BUN 16 (7.0-18.0) mg/dL Creatinine 0.7 (0.6-1.0) mg/dL Est Cr Clr Drug Dosing 109.01 mL/min Estimated GFR (MDRD) > 60.0 ml/min Glucose 139 H (74-106) mg/dL Calcium 9.2 (8.5-10.1) mg/dL Total Bilirubin 0.5 (0.2-1.0) mg/dL AST 15 (15-37) IU/L ALT 15 (14-63) IU/L Alkaline Phosphatase 73 (46-116) U/L Total Protein 6.9 (6.4-8.2) g/dL Albumin 2.8 L (3.4-5.0) g/dL Globulin 4.1 H (2.0-3.5) g/dL Albumin/Globulin Ratio 0.7 L (1.3-2.8) Amylase 133 H (25-115) U/L Lipase 789 H (73-393) U/L Meds: Medications Generic Name Dose Route Start Last Admin Trade Name Freq PRN Reason Stop Dose Admin Diphenhydramine HCl 25 mg 02/20/18 21:43 Benadryl IVPUSH Q4H PRN Itching Hydromorphone HCl 6 mg 02/21/18 08:45 02/21/18 09:05 Dilaudid Polygraph Technician 6 Mg In Ns 30 Ml IV 6 mg ASDIRECTED PRN Administration Abdominal Pain Protocol Lactated Ringer's 1,000 mls @ 200 mls/hr 02/20/18 21:45 02/20/18 22:54 Ringers, Lactated IV 200 mls/hr ASDIRECTED AMY Administration Piperacillin Sod/Tazobactam 50 mls @ 100 mls/hr 02/21/18 13:00 Sod 3.375 gm/ Sodium Chloride IV Q6H AMY Metoclopramide HCl 5 mg 02/20/18 21:52 Reglan IVPUSH Q6H PRN Nausea Nystatin 5 ml 02/21/18 12:00 Mycostatin PO QID AMY Ondansetron HCl 4 mg 02/20/18 21:43 Zofran IVPUSH Q6H PRN Nausea/Vomiting Pantoprazole Sodium 40 mg 02/21/18 09:00 02/21/18 09:03 Protonix Iv IVPUSH 40 mg DAILY AMY Administration Promethazine HCl 25 mg 02/20/18 21:43 Phenergan IM Q6H PRN Nausea Sodium Chloride 10 ml 02/20/18 18:13 02/20/18 19:04 Saline Flush FLUSH 10 ml ASDIRECTED PRN Administration Keep Vein Open Sodium Chloride 2.5 ml 02/20/18 18:13 02/20/18 19:05 Saline Flush FLUSH 2.5 ml ASDIRECTED PRN Administration Keep Vein Open Sodium Chloride 10 ml 02/20/18 21:43 Saline Flush FLUSH ASDIRECTED PRN Keep Vein Open Sodium Chloride 2.5 ml 02/20/18 21:43 Saline Flush FLUSH ASDIRECTED PRN Keep Vein Open Discontinued Medications Generic Name Dose Route Start Last Admin Trade Name Freq PRN Reason Stop Dose Admin Hydromorphone HCl 6 mg 02/20/18 21:42 Dilaudid Polygraph Technician 6 Mg In Ns 30 Ml IV ASDIRECTED PRN Abdominal Pain Protocol Hydromorphone HCl 0.5 mg 02/20/18 21:47 02/20/18 22:12 Dilaudid IVPUSH 02/20/18 21:48 0.5 mg ONETIME ONE Administration Hydromorphone HCl 1 mg 02/20/18 23:03 02/21/18 07:24 Dilaudid IVPUSH 1 mg Q1H PRN Administration Pain Sodium Chloride 1,000 mls @ 999 mls/hr 02/20/18 21:09 02/20/18 21:13 Normal Saline IV 02/20/18 22:09 999 mls/hr STAT ONE Administration Piperacillin Sod/Tazobactam 50 mls @ 100 mls/hr 02/20/18 22:00 02/21/18 07:11 Sod 3.375 gm/ Sodium Chloride IV 100 mls/hr Q8H AMY Administration Potassium Phosphate 30 mmole/ 510 mls @ 127.5 mls/hr 02/20/18 23:13 02/20/18 23:40 Sodium Chloride IV 02/20/18 23:14 Not Given NOW ONE Potassium Phosphate 15 mmole/ 255 mls @ 127.5 mls/hr 02/21/18 00:00 02/21/18 02:36 Sodium Chloride IV 02/21/18 03:59 127.5 mls/hr Q2H AMY Administration Piperacillin Sod/Tazobactam 50 mls @ 100 mls/hr 02/21/18 10:00 Sod 3.375 gm/ Sodium Chloride IV Q6H AMY Lactated Ringer's 1,000 mls @ 1,000 mls/hr 02/21/18 10:08 Ringers, Lactated IV 02/21/18 11:07 .BOLUS ONE Magnesium Sulfate 4 gm/ Premix 100 mls @ 50 mls/hr 02/21/18 10:11 02/21/18 10 :41 IV 02/21/18 12:10 50 mls/hr ONETIME ONE Administration Iopamidol 100 ml 02/20/18 20:03 02/20/18 20:15 [id number] (76%) IVPUSH 02/20/18 20:04 100 ml ONETIME STA Administration Metoclopramide HCl 5 mg 02/20/18 21:43 Reglan IV Q6H PRN Nausea Morphine Sulfate 4 mg 02/20/18 18:14 02/20/18 18:20 Morphine IVPUSH 02/20/18 18:15 4 mg ONETIME ONE Administration Morphine Sulfate 4 mg 02/20/18 18:57 02/20/18 19:03 Morphine IVPUSH 02/20/18 18:58 4 mg ONETIME ONE Administration Morphine Sulfate 30 mg 02/20/18 23:00 Morphine Polygraph Technician 30 Mg In 30 Ml IV ASDIRECTED [facility] Protocol Ondansetron HCl 4 mg 02/20/18 18:14 02/20/18 18:20 Zofran IVPUSH 02/20/18 18:15 4 mg ONETIME ONE Administration Departure - Departure Time of Disposition: 21:13 Disposition: Refer to Observation Condition: Good Clinical Impression: Post-operative pain - Discharge Information - My Orders Last 24 Hours: My Active Orders 02/20/18 18:13 Sodium Chloride 0.9% [Saline Flush] 10 ml FLUSH ASDIRECTED PRN Sodium Chloride 0.9% [Saline Flush] 2.5 ml FLUSH ASDIRECTED PRN 02/20/18 18:14 Saline Lock Insert [OM.PC] Stat 02/20/18 18:35 Abdomen Pelvis w Cont [CT] Stat - Assessment/Plan Last 24 Hours: My Active Orders 02/20/18 18:13 Sodium Chloride 0.9% [Saline Flush] 10 ml FLUSH ASDIRECTED PRN Sodium Chloride 0.9% [Saline Flush] 2.5 ml FLUSH ASDIRECTED PRN 02/20/18 18:14 Saline Lock Insert [OM.PC] Stat 02/20/18 18:35 Abdomen Pelvis w Cont [CT] Stat <Sridevi Tabro - Last Filed: 02/21/18 12:12> ED HPI GENERAL MEDICAL PROBLEM - General Source of Information: Reports: Patient History Limitations: Reports: No Limitations - History of Present Illness INITIAL COMMENTS - FREE TEXT/NARRATIVE: History of present illness: []Patient had cholecystectomy by Dr. Lindsay 7 days ago and today she went to the bathroom and felt a sudden tearing pain in her abdomen. She states she's been taking tramadol since his surgery but it's not helping her pain. She denies any fevers or diarrhea, Review of systems: As per history of present illness and below otherwise all systems reviewed and negative. Past medical history: As per history of present illness and as reviewed below otherwise noncontributory. Surgical history: As per history of present illness and as reviewed below otherwise noncontributory. Social history: No reported history of drug or alcohol abuse. Family history: As per history of present illness and as reviewed below otherwise noncontributory. Physical exam: General: Well developed, well nourished in NAD HEENT: Atraumatic, normocephalic, pupils reactive, negative for conjunctival pallor or scleral icterus, mucous membranes moist, throat clear, neck supple, nontender, trachea midline. Lungs: Clear to auscultation, breath sounds equal bilaterally, chest nontender. Heart: S1S2, regular, negative for clicks, rubs, or JVD. Abdomen: Soft, nondistended, nontender. Negative for masses or hepatosplenomegaly. Negative for costovertebral tenderness. Pelvis: Stable nontender. Genitourinary: Deferred. Rectal: Deferred. Extremities: Atraumatic, negative for cords or calf pain. Neurovascular unremarkable. Neuro: Awake, alert, oriented. Cranial nerves II through XII unremarkable. Cerebellum unremarkable. Motor and sensory unremarkable throughout. Exam nonfocal. Diagnostics: []CBC, chemistry, lipase, UA, CT abdomen ordered results pending at this time Therapeutics: []IV fluids, morphine for pain Impression: []Post operative dominant pain Plan: []Signed out to Dr. Akbar to check labs and to disposition this patient Definitive disposition and diagnosis as appropriate pending reevaluation and review of above. abdominal Pain Score (Numeric/FACES): 10 Past Medical History - Past Health History Medical/Surgical History: Denies Medical/Surgical History HEENT History: Reports: Other (See Below) Other HEENT History: wears glasses Gastrointestinal History: Reports: None Genitourinary History: Reports: None JAILER History: Reports: Neurological History: Reports: Other (See Below) (h/o migraines, not any more) Psychiatric History: Reports: Anxiety, Depression, Suicide Attempt Endocrine/Metabolic History: Reports: Obesity/BMI 30+ Hematologic History: Reports: Anemia, Blood Transfusion(s) - Past Surgical History Head Surgeries/Procedures: Reports: None GI Surgical History: Reports: Bariatric Procedure Female Surgical History: Reports: Section (x2) ED ROS GENERAL - Review of Systems Review Of Systems: See Below (See history of present illness) ED EXAM, GI/ABD - Physical Exam Exam: See Below (See history of present illness) Course - Vital Signs Last Recorded V/S: Last Vital Signs Temp 97.4 F 02/21/18 12:00 Pulse 103 H 02/21/18 12:00 Resp 22 H 02/21/18 12:00 BP 131/82 02/21/18 12:00 Pulse Ox 91 L 02/21/18 12:00 - Orders/Labs/Meds Orders: Active Orders 24 hr Category Date Time Status Abdomen Pelvis w Cont [CT] Stat Exams 02/20/18 18:35 Taken Sodium Chloride 0.9% [Saline Flush] Med 02/20/18 18:13 Active 10 ml FLUSH ASDIRECTED PRN Sodium Chloride 0.9% [Saline Flush] Med 02/20/18 18:13 Active 2.5 ml FLUSH ASDIRECTED PRN Saline Lock Insert [OM.PC] Stat Oth 02/20/18 18:14 Ordered Medication Orders Diphenhydramine HCl (Benadryl) 25 mg IVPUSH Q4H PRN PRN Reason: Itching Hydromorphone HCl (Dilaudid Polygraph Technician 6 Mg In Ns 30 Ml) 6 mg IV ASDIRECTED PRN; Protocol PRN Reason: Abdominal Pain Last Admin: 02/21/18 09:05 Dose: 6 mg Lactated Ringer's (Ringers, Lactated) 1,000 mls @ 200 mls/hr IV ASDIRECTED AMY Last Admin: 02/20/18 22:54 Dose: 200 mls/hr Piperacillin Sod/Tazobactam (Sod 3.375 gm/ Sodium Chloride) 50 mls @ 100 mls/ hr IV Q6H AMY Metoclopramide HCl (Reglan) 5 mg IVPUSH Q6H PRN PRN Reason: Nausea Nystatin (Mycostatin) 5 ml PO QID AMY Ondansetron HCl (Zofran) 4 mg IVPUSH Q6H PRN PRN Reason: Nausea/Vomiting Pantoprazole Sodium (Protonix Iv) 40 mg IVPUSH DAILY [facility] Last Admin: 02/21/18 09:03 Dose: 40 mg Promethazine HCl (Phenergan) 25 mg IM Q6H PRN PRN Reason: Nausea Sodium Chloride (Saline Flush) 10 ml FLUSH ASDIRECTED PRN PRN Reason: Keep Vein Open Last Admin: 02/20/18 19:04 Dose: 10 ml Sodium Chloride (Saline Flush) 2.5 ml FLUSH ASDIRECTED PRN PRN Reason: Keep Vein Open Last Admin: 02/20/18 19:05 Dose: 2.5 ml Sodium Chloride (Saline Flush) 10 ml FLUSH ASDIRECTED PRN PRN Reason: Keep Vein Open Sodium Chloride (Saline Flush) 2.5 ml FLUSH ASDIRECTED PRN PRN Reason: Keep Vein Open Labs: Laboratory Tests 02/20/18 02/20/18 02/20/18 Range/Units 18:12 18:12 18:12 WBC 13.25 H (4.0-11.0) K/uL RBC 4.33 (4.30-5.90) M/uL Hgb 10.0 L (12.0-16.0) g/dL Hct 31.7 L (36.0-46.0) % MCV 73.2 L (80.0-98.0) fL MCH 23.1 L (27.0-32.0) pg MCHC 31.5 (31.0-37.0) g/dL RDW Std Deviation 48.2 (28.0-62.0) fl RDW Coeff of Briana 18 H (11.0-15.0) % Plt Count 315 (150-400) K/uL MPV 10.60 (7.40-12.00) fL Neut % (Auto) 71.4 (48.0-80.0) % Lymph % (Auto) 17.3 (16.0-40.0) % [place] % (Auto) 10.4 (0.0-15.0) % Eos % (Auto) 0.7 (0.0-7.0) % Baso % (Auto) 0.2 (0.0-1.5) % Neut # (Auto) 9.5 H (1.4-5.7) K/uL Lymph # (Auto) 2.3 (0.6-2.4) K/uL [place] # (Auto) 1.4 H (0.0-0.8) K/uL Eos # (Auto) 0.1 (0.0-0.7) K/uL Baso # (Auto) 0.0 (0.0-0.1) K/uL Nucleated RBC % 0.0 /100WBC Nucleated RBCs # 0 K/uL Sodium 143 (136-145) mmol/L Potassium 3.0 L (3.5-5.1) mmol/L Chloride 105 (98-107) mmol/L Carbon Dioxide 25.5 (21.0-32.0) mmol/L BUN 16 (7.0-18.0) mg/dL Creatinine 0.7 (0.6-1.0) mg/dL Est Cr Clr Drug Dosing 109.01 mL/min Estimated GFR (MDRD) > 60.0 ml/min Glucose 139 H (74-106) mg/dL Calcium 9.2 (8.5-10.1) mg/dL Total Bilirubin 0.5 (0.2-1.0) mg/dL AST 15 (15-37) IU/L ALT 15 (14-63) IU/L Alkaline Phosphatase 73 (46-116) U/L Total Protein 6.9 (6.4-8.2) g/dL Albumin 2.8 L (3.4-5.0) g/dL Globulin 4.1 H (2.0-3.5) g/dL Albumin/Globulin Ratio 0.7 L (1.3-2.8) Amylase 133 H (25-115) U/L Lipase 789 H (73-393) U/L Meds: Medications Generic Name Dose Route Start Last Admin Trade Name Freq PRN Reason Stop Dose Admin Diphenhydramine HCl 25 mg 02/20/18 21:43 Benadryl IVPUSH Q4H PRN Itching Hydromorphone HCl 6 mg 02/21/18 08:45 02/21/18 09:05 Dilaudid Polygraph Technician 6 Mg In Ns 30 Ml IV 6 mg ASDIRECTED PRN Administration Abdominal Pain Protocol Lactated Ringer's 1,000 mls @ 200 mls/hr 02/20/18 21:45 02/20/18 22:54 Ringers, Lactated IV 200 mls/hr ASDIRECTED AMY Administration Piperacillin Sod/Tazobactam 50 mls @ 100 mls/hr 02/21/18 13:00 Sod 3.375 gm/ Sodium Chloride IV Q6H AMY Metoclopramide HCl 5 mg 02/20/18 21:52 Reglan IVPUSH Q6H PRN Nausea Nystatin 5 ml 02/21/18 12:00 Mycostatin PO QID AMY Ondansetron HCl 4 mg 02/20/18 21:43 Zofran IVPUSH Q6H PRN Nausea/Vomiting Pantoprazole Sodium 40 mg 02/21/18 09:00 02/21/18 09:03 Protonix Iv IVPUSH 40 mg DAILY AMY Administration Promethazine HCl 25 mg 02/20/18 21:43 Phenergan IM Q6H PRN Nausea Sodium Chloride 10 ml 02/20/18 18:13 02/20/18 19:04 Saline Flush FLUSH 10 ml ASDIRECTED PRN Administration Keep Vein Open Sodium Chloride 2.5 ml 02/20/18 18:13 02/20/18 19:05 Saline Flush FLUSH 2.5 ml ASDIRECTED PRN Administration Keep Vein Open Sodium Chloride 10 ml 02/20/18 21:43 Saline Flush FLUSH ASDIRECTED PRN Keep Vein Open Sodium Chloride 2.5 ml 02/20/18 21:43 Saline Flush FLUSH ASDIRECTED PRN Keep Vein Open Discontinued Medications Generic Name Dose Route Start Last Admin Trade Name Freq PRN Reason Stop Dose Admin Hydromorphone HCl 6 mg 02/20/18 21:42 Dilaudid Polygraph Technician 6 Mg In Ns 30 Ml IV ASDIRECTED PRN Abdominal Pain Protocol Hydromorphone HCl 0.5 mg 02/20/18 21:47 02/20/18 22:12 Dilaudid IVPUSH 02/20/18 21:48 0.5 mg ONETIME ONE Administration Hydromorphone HCl 1 mg 02/20/18 23:03 02/21/18 07:24 Dilaudid IVPUSH 1 mg Q1H PRN Administration Pain Sodium Chloride 1,000 mls @ 999 mls/hr 02/20/18 21:09 02/20/18 21:13 Normal Saline IV 02/20/18 22:09 999 mls/hr STAT ONE Administration Piperacillin Sod/Tazobactam 50 mls @ 100 mls/hr 02/20/18 22:00 02/21/18 07:11 Sod 3.375 gm/ Sodium Chloride IV 100 mls/hr Q8H AMY Administration Potassium Phosphate 30 mmole/ 510 mls @ 127.5 mls/hr 02/20/18 23:13 02/20/18 23:40 Sodium Chloride IV 02/20/18 23:14 Not Given NOW ONE Potassium Phosphate 15 mmole/ 255 mls @ 127.5 mls/hr 02/21/18 00:00 02/21/18 02:36 Sodium Chloride IV 02/21/18 03:59 127.5 mls/hr Q2H AMY Administration Piperacillin Sod/Tazobactam 50 mls @ 100 mls/hr 02/21/18 10:00 Sod 3.375 gm/ Sodium Chloride IV Q6H AMY Lactated Ringer's 1,000 mls @ 1,000 mls/hr 02/21/18 10:08 Ringers, Lactated IV 02/21/18 11:07 .BOLUS ONE Magnesium Sulfate 4 gm/ Premix 100 mls @ 50 mls/hr 02/21/18 10:11 02/21/18 10 :41 IV 02/21/18 12:10 50 mls/hr ONETIME ONE Administration Iopamidol 100 ml 02/20/18 20:03 02/20/18 20:15 Isovue-370 (76%) IVPUSH 02/20/18 20:04 100 ml ONETIME STA Administration Metoclopramide HCl 5 mg 02/20/18 21:43 Reglan IV Q6H PRN Nausea Morphine Sulfate 4 mg 02/20/18 18:14 02/20/18 18:20 Morphine IVPUSH 02/20/18 18:15 4 mg ONETIME ONE Administration Morphine Sulfate 4 mg 02/20/18 18:57 02/20/18 19:03 Morphine IVPUSH 02/20/18 18:58 4 mg ONETIME ONE Administration Morphine Sulfate 30 mg 02/20/18 23:00 Morphine Polygraph Technician 30 Mg In 30 Ml IV ASDIRECTED AMY Protocol Ondansetron HCl 4 mg 02/20/18 18:14 02/20/18 18:20 Zofran IVPUSH 02/20/18 18:15 4 mg ONETIME ONE Administration - My Orders Last 24 Hours: My Active Orders 02/20/18 18:13 Sodium Chloride 0.9% [Saline Flush] 10 ml FLUSH ASDIRECTED PRN Sodium Chloride 0.9% [Saline Flush] 2.5 ml FLUSH ASDIRECTED PRN 02/20/18 18:14 Saline Lock Insert [OM.PC] Stat 02/20/18 18:35 Abdomen Pelvis w Cont [CT] Stat - Assessment/Plan Last 24 Hours: My Active Orders 02/20/18 18:13 Sodium Chloride 0.9% [Saline Flush] 10 ml FLUSH ASDIRECTED PRN Sodium Chloride 0.9% [Saline Flush] 2.5 ml FLUSH ASDIRECTED PRN 02/20/18 18:14 Saline Lock Insert [OM.PC] Stat 02/20/18 18:35 Abdomen Pelvis w Cont [CT] Stat
[2018-02-20 19:45] LABS: CHLORIDE,CL 105 mmol/L (98-107); SODIUM,NA 143 mmol/L (136-145)
[2018-02-20] MEDS ORDERED: Iopamidol 755 Mg/ML 100 ML Bottle IVPUSH STA (20:03)
[2018-02-20] MEDS ORDERED: Sodium Chloride 0.9% 1,000 ML IV ONE (21:09)
[2018-02-20] MEDS ORDERED: HYDROmorphone/Normal Saline 6 MG/30 ML PCA Vial IV PRN (21:42)
[2018-02-20] MEDS ORDERED: diphenhydrAMINE 50 MG/ML SDV IVPUSH PRN (21:43)
[2018-02-20] MEDS ORDERED: Ondansetron 4 MG/2 ML SDV IVPUSH PRN (21:43)
[2018-02-20] MEDS ORDERED: Promethazine 25 MG/ML SDV IM PRN (21:43)
[2018-02-20] MEDS ORDERED: Metoclopramide 10 MG/2 ML SDV IV PRN (21:43)
[2018-02-20] MEDS ORDERED: Lactated Ringers 1,000 ML IV SCH (21:45)
[2018-02-20] MEDS ORDERED: HYDROmorphone 1 MG/ML Syringe IVPUSH ONE (21:47)
[2018-02-20] MEDS ORDERED: Metoclopramide 10 MG/2 ML SDV IVPUSH PRN (21:52)
[2018-02-20] MEDS: Piperacillin/Tazobactam 3.375 GM in Sodium Chloride 0.9% 50 ML IV SCH (22:16)
--- NOTE | 2018-02-20 22:39 | PCM.HP ---
H&P History of Present Illness - General Date of Service: 02/20/18 Admit Problem/Dx: Admission Diagnosis/Problem Admission Diagnosis/Problem Pancreatitis Source of Information: Patient History Limitations: Reports: No Limitations - History of Present Illness Initial Comments - Free Text/Narative: Patient is a 32 year old female with a past medical history significant for gastric bypass who underwent a laparoscopic cholecystectomy for symptomatic cholelithiasis on 02/14/18. She has had abdominal pain since the surgery. She feels it is getting worse. She c/o subjective fever, chills and diaphoresis. She has been increasingly nauseated and vomited once today. She denies jaundice. The pain is worst in the epigastric area and radiates to her back and up to her shoulders. She had a BM yesterday and has been urinating. abdominal Pain Score (Numeric/FACES): 10 - Related Data Allergies/Adverse Reactions: Allergies Allergy/AdvReac Type Severity Reaction Status Date / Time No Known Allergies Allergy Verified 02/20/18 18:13 Home Medications: Home Meds Drospirenone/Ethinyl Estradiol [Kate 28] 1 tab PO DAILY 09/08/14 [History] traZODone 100 mg PO BEDTIME 01/12/18 [History] FLUoxetine [PROzac] 10 mg PO DAILY 02/20/18 [History] traMADol [Ultram] 50 mg PO DAILY 02/20/18 [History] Past Medical History - Past Health History Medical/Surgical History: Denies Medical/Surgical History HEENT History: Reports: Other (See Below) Other HEENT History: wears glasses Cardiovascular History: Reports: None Respiratory History: Reports: None Gastrointestinal History: Reports: None Genitourinary History: Reports: None OPHTHALMOLOGIST History: Reports: Musculoskeletal History: Reports: None Neurological History: Reports: None, Other (See Below) Psychiatric History: Reports: Anxiety, Depression, Suicide Attempt Endocrine/Metabolic History: Reports: Obesity/BMI 30+ Hematologic History: Reports: Anemia, Blood Transfusion(s) Immunologic History: Reports: None Oncologic (Cancer) History: Reports: None Dermatologic History: Reports: None - Infectious Disease History Infectious Disease History: Reports: Chicken Pox - Past Surgical History Head Surgeries/Procedures: Reports: None Cardiovascular Surgical History: Reports: None Respiratory Surgical History: Reports: Lung Biopsies GI Surgical History: Reports: Bariatric Procedure Female Surgical History: Reports: Section Musculoskeletal Surgical History: Reports: None Oncologic Surgical History: Reports: None Dermatological Surgical History: Reports: None Social & Family History - Family History Family Medical History: Noncontributory - Tobacco Use Smoking Status *Q: Current Every Day Smoker Years of Tobacco use: 16 Packs/Tins Daily: 0.5 Second Hand Smoke Exposure: Yes - Caffeine Use Caffeine Use: Reports: Coffee - Recreational Drug Use Recreational Drug Use: No H&P Review of Systems - Review of Systems: Review Of Systems: ROS reveals no pertinent complaints other than HPI. Exam - Exam Exam: See Below - Vital Signs Vital Signs: Last Vital Signs Temp 36.6 C 02/20/18 22:00 Pulse 94 02/20/18 22:19 Resp 16 02/20/18 22:19 BP 133/82 02/20/18 22:19 Pulse Ox 96 02/20/18 22:19 Weight: 84 kg - Exam General: Alert, Cooperative, Moderate Distress HEENT: Conjunctiva Clear, Mucosa Moist & [place], Posterior Pharynx Clear, Pupils Equal, Pupils Reactive, Other (scattered white plaque on tounge. tounge ring in place. ) Lungs: Clear to Auscultation, Normal Respiratory Effort Cardiovascular: Regular Rate, Regular Rhythm GI/Abdominal Exam: Soft, No Distention, Pelvis Stable, Tender (tenderness along the upper abdominal incision. There is resolving ecchymosis around the incision. ). No: Guarding, Rigid, Rebound Back Exam: Normal Inspection, Full Range of Motion Extremities: Normal Inspection, Normal Range of Motion Skin: Warm, Dry, Intact - Patient Data Lab Results Last 24 hrs: Laboratory Results - last 24 hr 02/20/18 02/20/18 02/20/18 Range/Units 18:12 18:12 18:12 WBC 13.25 H (4.0-11.0) K/uL RBC 4.33 (4.30-5.90) M/uL Hgb 10.0 L (12.0-16.0) g/dL Hct 31.7 L (36.0-46.0) % MCV 73.2 L (80.0-98.0) fL MCH 23.1 L (27.0-32.0) pg MCHC 31.5 (31.0-37.0) g/dL RDW Std Deviation 48.2 (28.0-62.0) fl RDW Coeff of Briana 18 H (11.0-15.0) % Plt Count 315 (150-400) K/uL MPV 10.60 (7.40-12.00) fL Neut % (Auto) 71.4 (48.0-80.0) % Lymph % (Auto) 17.3 (16.0-40.0) % [place] % (Auto) 10.4 (0.0-15.0) % Eos % (Auto) 0.7 (0.0-7.0) % Baso % (Auto) 0.2 (0.0-1.5) % Neut # (Auto) 9.5 H (1.4-5.7) K/uL Lymph # (Auto) 2.3 (0.6-2.4) K/uL [place] # (Auto) 1.4 H (0.0-0.8) K/uL Eos # (Auto) 0.1 (0.0-0.7) K/uL Baso # (Auto) 0.0 (0.0-0.1) K/uL Nucleated RBC % 0.0 /100WBC Nucleated RBCs # 0 K/uL Sodium 143 (136-145) mmol/L Potassium 3.0 L (3.5-5.1) mmol/L Chloride 105 (98-107) mmol/L Carbon Dioxide 25.5 (21.0-32.0) mmol/L BUN 16 (7.0-18.0) mg/dL Creatinine 0.7 (0.6-1.0) mg/dL Est Cr Clr Drug Dosing 109.01 mL/min Estimated GFR (MDRD) > 60.0 ml/min Glucose 139 H (74-106) mg/dL Calcium 9.2 (8.5-10.1) mg/dL Total Bilirubin 0.5 (0.2-1.0) mg/dL AST 15 (15-37) IU/L ALT 15 (14-63) IU/L Alkaline Phosphatase 73 (46-116) U/L Total Protein 6.9 (6.4-8.2) g/dL Albumin 2.8 L (3.4-5.0) g/dL Globulin 4.1 H (2.0-3.5) g/dL Albumin/Globulin Ratio 0.7 L (1.3-2.8) Amylase 133 H (25-115) U/L Lipase 789 H (73-393) U/L Result Diagrams: 02/20/18 18:12 02/20/18 18:12 - Problem List (1) Pancreatitis SNOMED Code(s): 35685629 ICD Code: K85.90 - ACUTE PANCREATITIS WITHOUT NECROSIS OR INFECTION, UNSP Status: Acute Current Visit: Yes (2) Post-operative pain SNOMED Code(s): 591895139 ICD Code: G89.18 - OTHER ACUTE POSTPROCEDURAL PAIN Status: Acute Current Visit: Yes Problem List Initiated/Reviewed/Updated: Yes Orders Last 24hrs: Active Orders 24 hr Category Date Time Status Patient Status [ADT] Routine ADT 02/20/18 21:44 Active Intake and Output [RC] Q4HR Care 02/20/18 21:44 Active Notify Provider Vital Signs [RC] PRN Care 02/20/18 21:44 Active Oxygen Therapy [RC] PRN Care 02/20/18 21:44 Active Up ad Kimberly [RC] ASDIRECTED Care 02/20/18 21:43 Active Vital Signs [RC] PER UNIT ROUTINE Care 02/20/18 21:44 Active Nothing Per Oral Diet [DIET] Diet 02/20/18 Dinner Active Abdomen Pelvis w Cont [CT] Stat Exams 02/20/18 18:35 Taken CBC WITH AUTO DIFF [HEME] AM Lab 02/21/18 05:11 Ordered COMPREHENSIVE METABOLIC PN,CMP [CHEM] AM Lab 02/21/18 05:11 Ordered HYDROmorphone/Normal Saline [Dilaudid AIR FORCE PILOT 6 MG in NS 30 Med 02/20/18 21:42 Active ML] 6 mg IV ASDIRECTED PRN Lactated Ringers [Ringers, Lactated] 1,000 ml Med 02/20/18 21:45 Active IV ASDIRECTED Metoclopramide [Reglan] Med 02/20/18 21:52 Active 5 mg IVPUSH Q6H PRN Ondansetron [Zofran] Med 02/20/18 21:43 Active 4 mg IVPUSH Q6H PRN Piperacillin/Tazobactam [Piperacil-Tazobact] 3.375 gm Med 02/20/18 22:00 Active Sodium Chloride 0.9% [Normal Saline] 50 ml IV Q8H Promethazine [Phenergan] Med 02/20/18 21:43 Active 25 mg IM Q6H PRN Sodium Chloride 0.9% [Saline Flush] Med 02/20/18 18:13 Active 10 ml FLUSH ASDIRECTED PRN Sodium Chloride 0.9% [Saline Flush] Med 02/20/18 21:43 Active 10 ml FLUSH ASDIRECTED PRN Sodium Chloride 0.9% [Saline Flush] Med 02/20/18 18:13 Active 2.5 ml FLUSH ASDIRECTED PRN Sodium Chloride 0.9% [Saline Flush] Med 02/20/18 21:43 Active 2.5 ml FLUSH ASDIRECTED PRN diphenhydrAMINE [Benadryl] Med 02/20/18 21:43 Active 25 mg IVPUSH Q4H PRN Peripheral IV Insertion Adult [OM.PC] Urgent Oth 02/20/18 21:43 Ordered Saline Lock Insert [OM.PC] Stat Oth 02/20/18 18:14 Ordered Resuscitation Status Routine Resus Stat 02/20/18 21:43 Ordered Medication Orders Diphenhydramine HCl (Benadryl) 25 mg IVPUSH Q4H PRN PRN Reason: Itching Hydromorphone HCl (Dilaudid Recreation Adviser 6 Mg In Ns 30 Ml) 6 mg IV ASDIRECTED PRN; Protocol PRN Reason: Abdominal Pain Lactated Ringer's (Ringers, Lactated) 1,000 mls @ 200 mls/hr IV ASDIRECTED [facility] Piperacillin Sod/Tazobactam (Sod 3.375 gm/ Sodium Chloride) 50 mls @ 100 mls/ hr IV Q8H [facility] Last Admin: 02/20/18 22:16 Dose: 100 mls/hr Metoclopramide HCl (Reglan) 5 mg IVPUSH Q6H PRN PRN Reason: Nausea Ondansetron HCl (Zofran) 4 mg IVPUSH Q6H PRN PRN Reason: Nausea/Vomiting Promethazine HCl (Phenergan) 25 mg IM Q6H PRN PRN Reason: Nausea Sodium Chloride (Saline Flush) 10 ml FLUSH ASDIRECTED PRN PRN Reason: Keep Vein Open Last Admin: 02/20/18 19:04 Dose: 10 ml Sodium Chloride (Saline Flush) 2.5 ml FLUSH ASDIRECTED PRN PRN Reason: Keep Vein Open Last Admin: 02/20/18 19:05 Dose: 2.5 ml Sodium Chloride (Saline Flush) 10 ml FLUSH ASDIRECTED PRN PRN Reason: Keep Vein Open Sodium Chloride (Saline Flush) 2.5 ml FLUSH ASDIRECTED PRN PRN Reason: Keep Vein Open Assessment/Plan Comment:: I reviewed Dr. Davis's notes. It sounds like she had large gallstones requiring her 12mm port site to be extended. There was some bile spilling at the time of surgery. The abdomen was irrigated and there was surgicel placed in the gallbladder fossa. There were also a few stones in the cystic duct that were removed at the time of surgery. She has a mild leukocytosis of 13K. Her amylase and lipase are mildly elevated. Her LFTs and bilirubin were within normal limits. Her CT abdomen pelvis shows fluid around the gallbladder fossa, the liver and extending down into the pelvis. This may be residual fluid from irrigation, a post operative hematoma from the surgery or a bile leak. Her pain may be secondary to the mild pancreatitis that could be secondary to some biliary stasis or some passed microscopic stones from mainpulation during surgery however I would expect her LFTs to be elevated. Plan: Pain: IV dilaudid AIR FORCE PILOT or IV push depending on hospital availability CV/Pulm: IS use. Monitor VS overnight. Resuscitate with 200ml/hr LR GI: Strict NPO. HIDA in am. Renal: Hypokalemic most likely from vomiting. Will replace. BUN/Cr WNL. Will watch UOP closely. ID: [id number] IV Heme: Slightly anemic. Will repeat labs in am Px: No heparin. IV protonix.
[2018-02-20] MEDS ORDERED: Morphine PF 30 MG/30 ML PCA Vial IV SCH (23:00)
[2018-02-20] MEDS ORDERED: Potassium Phosphates 30 MMOLE in Sodium Chloride 0.9% 500 ML IV ONE (23:13)
[2018-02-20] MEDS: HYDROmorphone 1 MG/ML Syringe IVPUSH PRN (23:28)
[2018-02-20] MEDS: Potassium Phosphates 15 MMOLE in Sodium Chloride 0.9% 250 ML IV SCH (23:39)
[2018-02-21] MEDS: HYDROmorphone 1 MG/ML Syringe IVPUSH PRN ×6 (00:42→07:24)
[2018-02-21] MEDS: Potassium Phosphates 15 MMOLE in Sodium Chloride 0.9% 250 ML IV SCH (02:36)
[2018-02-21 06:41] LABS: CHLORIDE,CL 105 mmol/L (98-107); SODIUM,NA 142 mmol/L (136-145)
[2018-02-21] MEDS: Piperacillin/Tazobactam 3.375 GM in Sodium Chloride 0.9% 50 ML IV SCH (07:11)
[2018-02-21] MEDS ORDERED: HYDROmorphone/Normal Saline 6 MG/30 ML PCA Vial IV PRN (08:45)
[2018-02-21] MEDS ORDERED: Pantoprazole 40 MG Vial IVPUSH SCH (09:00)
[2018-02-21] MEDS ORDERED: Piperacillin/Tazobactam 3.375 GM in Sodium Chloride 0.9% 50 ML IV SCH ×2 (10:00→13:00)
[2018-02-21] MEDS ORDERED: Lactated Ringers 1,000 ML IV ONE (10:08)
[2018-02-21] MEDS ORDERED: Magnesium Sulfate/Water 4 GM in Premix Bag 1 BAG IV ONE (10:11)
[2018-02-21] MEDS ORDERED: Nystatin Susp 100,000 Unit/ML 5 ML UD Cup PO SCH (12:00)
--- NOTE | 2018-02-21 14:33 | NM ---
EXAMINATION: Hepatobiliary study HISTORY: Status post cholecystectomy COMPARISON: CT dated 02/20/2018 TECHNIQUE: AP and right lateral imaging obtained following the administration of 5.06 mCi of techneti um 99m labeled tendon. Imaging was obtained up to 60 minutes. FINDINGS: There is normal uptake and clearance within the liver. The biliary tree appears normal. The re is leakage of contrast into the gallbladder fossa and along the perihepatic region. There is no pa ssage of radiotracer into the small bowel. IMPRESSION: 1. Accumulation of radiotracer within the gallbladder fossa and along the liver edge consistent with a bile leak.
--- NOTE | 2018-02-21 14:49 | PCM.DCSUM1 ---
Discharge Summary - Hospital Course Free Text/Narrative:: 32 y/o female who underwent a laparoscopic cholecystectomy on 02/14 for symptomatic cholelithiasis. Did well last week until yesterday when she started more RUQ pain. Seen in ER and found to have elevated WBC, amylase and lipase. HIDA scan today suggests a bile collection in the gallbladder fossa with a bile leak. Leak does not appear to be coming from the cystic duct or CBD. - Discharge Data Discharge Date: 02/21/18 Discharge Disposition: DC/Tfer to Acute Hospital 02 Condition: Fair - Discharge Diagnosis/Problem(s) (1) Bile leak, postoperative SNOMED Code(s): 881310940 ICD Code: K91.89 - OTH POSTPROCEDURAL COMPLICATIONS AND DISORDERS OF DGSTV SYS; K83.8 - OTHER SPECIFIED DISEASES OF BILIARY TRACT Status: Acute Priority: High Current Visit: Yes (2) Pancreatitis SNOMED Code(s): 57921256 ICD Code: K85.90 - ACUTE PANCREATITIS WITHOUT NECROSIS OR INFECTION, UNSP Status: Acute Priority: High Current Visit: Yes Qualifiers: Chronicity: acute Pancreatitis type: biliary (3) Post-operative pain SNOMED Code(s): 810475798 ICD Code: G89.18 - OTHER ACUTE POSTPROCEDURAL PAIN Status: Acute Priority : High Current Visit: Yes - Patient Summary/Data Operative Procedure(s) Performed: Laparoscopic cholecystectomy on 02/14. - Patient Instructions Diet: NPO Activity: Rest and Relax Today Driving: Do Not Drive - Discharge Plan Home Medications: Home Meds Drospirenone/Ethinyl Estradiol [Kate 28] 1 tab PO DAILY 09/08/14 [History] traZODone 100 mg PO BEDTIME 01/12/18 [History] FLUoxetine [PROzac] 10 mg PO DAILY 02/20/18 [History] traMADol [Ultram] 50 mg PO DAILY 02/20/18 [History] Forms: ED Department Discharge Referrals: Jaren Davis MD [Primary Care Provider] - - Discharge Summary/Plan Comment DC Time >30 min.: Yes Discharge Summary/Plan Comment: HIDA scan shows a bile leak in the gallbladder fossa. Patient is being transferred to [facility] in [place] for ERCP and treatment as necessary. - General Info Date of Service: 02/21/18 Functional Status: Reports: Pain Controlled, Ambulating, Urinating. Denies: New Symptoms - Review of Systems General: Reports: Fever, Weakness, Appetite HEENT: Reports: No Symptoms Pulmonary: Denies: Shortness of Breath, Pleuritic Chest Pain, Cough, Sputum Cardiovascular: Reports: No Symptoms Gastrointestinal: Reports: Abdominal Pain, Decreased Appetite. Denies: Constipation, Diarrhea, Difficulty Swallowing, Nausea, Vomiting Genitourinary: Denies: Dysuria, Frequency Musculoskeletal: Reports: No Symptoms Skin: Denies: Cyanosis, Jaundice, Mottled, Pallor, Diaphoresis Neurological: Denies: Confusion, Dizziness Psychiatric: Reports: No Symptoms - Patient Data Vitals - Most Recent: Last Vital Signs Temp 97.4 F 02/21/18 12:00 Pulse 103 H 02/21/18 12:00 Resp 22 H 02/21/18 12:00 BP 131/82 02/21/18 12:00 Pulse Ox 91 L 02/21/18 12:00 Weight - Most Recent: 185 lb 3.013 oz I&O - Last 24 hours: Intake & Output 02/21/18 02/21/18 02/21/18 03:59 11:59 19:59 Intake Total 1050 250 0 Output Total 400 300 Balance 650 250 -300 Lab Results - Last 24 hrs: Laboratory Results - last 24 hr 02/20/18 02/20/18 02/20/18 Range/Units 18:12 18:12 18:12 WBC 13.25 H (4.0-11.0) K/uL RBC 4.33 (4.30-5.90) M/uL Hgb 10.0 L (12.0-16.0) g/dL Hct 31.7 L (36.0-46.0) % MCV 73.2 L (80.0-98.0) fL MCH 23.1 L (27.0-32.0) pg MCHC 31.5 (31.0-37.0) g/dL RDW Std Deviation 48.2 (28.0-62.0) fl RDW Coeff of Briana 18 H (11.0-15.0) % Plt Count 315 (150-400) K/uL MPV 10.60 (7.40-12.00) fL Neut % (Auto) 71.4 (48.0-80.0) % Lymph % (Auto) 17.3 (16.0-40.0) % [place] % (Auto) 10.4 (0.0-15.0) % Eos % (Auto) 0.7 (0.0-7.0) % Baso % (Auto) 0.2 (0.0-1.5) % Neut # (Auto) 9.5 H (1.4-5.7) K/uL Lymph # (Auto) 2.3 (0.6-2.4) K/uL [place] # (Auto) 1.4 H (0.0-0.8) K/uL Eos # (Auto) 0.1 (0.0-0.7) K/uL Baso # (Auto) 0.0 (0.0-0.1) K/uL Add Manual Diff Neutrophils % (Manual) (48.0-80.0) % Band Neutrophils % % Lymphocytes % (Manual) (16.0-40.0) % Monocytes % (Manual) (0.0-15.0) % Nucleated RBC % 0.0 /100WBC Absolute Seg Neuts (1.4-5.7) Band Neutrophils # Lymphocytes # (Manual) (0.6-2.4) Monocytes # (Manual) (0.0-0.8) Nucleated RBCs # 0 K/uL Sodium 143 (136-145) mmol/L Potassium 3.0 L (3.5-5.1) mmol/L Chloride 105 (98-107) mmol/L Carbon Dioxide 25.5 (21.0-32.0) mmol/L BUN 16 (7.0-18.0) mg/dL Creatinine 0.7 (0.6-1.0) mg/dL Est Cr Clr Drug Dosing 109.01 mL/min Estimated GFR (MDRD) > 60.0 ml/min Glucose 139 H (74-106) mg/dL Calcium 9.2 (8.5-10.1) mg/dL Phosphorus (2.6-4.7) mg/dL Magnesium (1.5-2.0) mg/dL Total Bilirubin 0.5 (0.2-1.0) mg/dL AST 15 (15-37) IU/L ALT 15 (14-63) IU/L Alkaline Phosphatase 73 (46-116) U/L Total Protein 6.9 (6.4-8.2) g/dL Albumin 2.8 L (3.4-5.0) g/dL Globulin 4.1 H (2.0-3.5) g/dL Albumin/Globulin Ratio 0.7 L (1.3-2.8) Amylase 133 H (25-115) U/L Lipase 789 H (73-393) U/L 02/21/18 02/21/18 02/21/18 Range/Units 05:39 05:39 05:49 WBC 16.95 H (4.0-11.0) K/uL RBC 4.91 (4.30-5.90) M/uL Hgb 11.3 L (12.0-16.0) g/dL Hct 36.0 (36.0-46.0) % MCV 73.3 L (80.0-98.0) fL MCH 23.0 L (27.0-32.0) pg MCHC 31.4 (31.0-37.0) g/dL RDW Std Deviation 48.2 (28.0-62.0) fl RDW Coeff of Briana 18 H (11.0-15.0) % Plt Count 398 (150-400) K/uL MPV 10.70 (7.40-12.00) fL Neut % (Auto) (48.0-80.0) % Lymph % (Auto) (16.0-40.0) % [place] % (Auto) (0.0-15.0) % Eos % (Auto) (0.0-7.0) % Baso % (Auto) (0.0-1.5) % Neut # (Auto) (1.4-5.7) K/uL Lymph # (Auto) (0.6-2.4) K/uL [place] # (Auto) (0.0-0.8) K/uL Eos # (Auto) (0.0-0.7) K/uL Baso # (Auto) (0.0-0.1) K/uL Add Manual Diff YES Neutrophils % (Manual) 73 (48.0-80.0) % Band Neutrophils % 17 % Lymphocytes % (Manual) 8 L (16.0-40.0) % Monocytes % (Manual) 2 (0.0-15.0) % Nucleated RBC % 0.0 /100WBC Absolute Seg Neuts 12.4 H (1.4-5.7) Band Neutrophils # 2.9 Lymphocytes # (Manual) 1.4 (0.6-2.4) Monocytes # (Manual) 0.3 (0.0-0.8) Nucleated RBCs # 0 K/uL Sodium 142 (136-145) mmol/L Potassium 3.8 (3.5-5.1) mmol/L Chloride 105 (98-107) mmol/L Carbon Dioxide 26.9 (21.0-32.0) mmol/L BUN 10 (7.0-18.0) mg/dL Creatinine 0.8 (0.6-1.0) mg/dL Est Cr Clr Drug Dosing 95.38 mL/min Estimated GFR (MDRD) > 60.0 ml/min Glucose 137 H (74-106) mg/dL Calcium 8.8 (8.5-10.1) mg/dL Phosphorus 5.3 H (2.6-4.7) mg/dL Magnesium 1.5 (1.5-2.0) mg/dL Total Bilirubin 0.4 (0.2-1.0) mg/dL AST 10 L (15-37) IU/L ALT 14 (14-63) IU/L Alkaline Phosphatase 75 (46-116) U/L Total Protein 7.0 (6.4-8.2) g/dL Albumin 2.6 L (3.4-5.0) g/dL Globulin 4.4 H (2.0-3.5) g/dL Albumin/Globulin Ratio 0.6 L (1.3-2.8) Amylase 116 H (25-115) U/L Lipase (73-393) U/L 02/21/18 Range/Units 05:49 WBC (4.0-11.0) K/uL RBC (4.30-5.90) M/uL Hgb (12.0-16.0) g/dL Hct (36.0-46.0) % MCV (80.0-98.0) fL MCH (27.0-32.0) pg MCHC (31.0-37.0) g/dL RDW Std Deviation (28.0-62.0) fl RDW Coeff of Briana (11.0-15.0) % Plt Count (150-400) K/uL MPV (7.40-12.00) fL Neut % (Auto) (48.0-80.0) % Lymph % (Auto) (16.0-40.0) % [place] % (Auto) (0.0-15.0) % Eos % (Auto) (0.0-7.0) % Baso % (Auto) (0.0-1.5) % Neut # (Auto) (1.4-5.7) K/uL Lymph # (Auto) (0.6-2.4) K/uL [place] # (Auto) (0.0-0.8) K/uL Eos # (Auto) (0.0-0.7) K/uL Baso # (Auto) (0.0-0.1) K/uL Add Manual Diff Neutrophils % (Manual) (48.0-80.0) % Band Neutrophils % % Lymphocytes % (Manual) (16.0-40.0) % Monocytes % (Manual) (0.0-15.0) % Nucleated RBC % /100WBC Absolute Seg Neuts (1.4-5.7) Band Neutrophils # Lymphocytes # (Manual) (0.6-2.4) Monocytes # (Manual) (0.0-0.8) Nucleated RBCs # K/uL Sodium (136-145) mmol/L Potassium (3.5-5.1) mmol/L Chloride (98-107) mmol/L Carbon Dioxide (21.0-32.0) mmol/L BUN (7.0-18.0) mg/dL Creatinine (0.6-1.0) mg/dL Est Cr Clr Drug Dosing mL/min Estimated GFR (MDRD) ml/min Glucose (74-106) mg/dL Calcium (8.5-10.1) mg/dL Phosphorus (2.6-4.7) mg/dL Magnesium (1.5-2.0) mg/dL Total Bilirubin (0.2-1.0) mg/dL AST (15-37) IU/L ALT (14-63) IU/L Alkaline Phosphatase (46-116) U/L Total Protein (6.4-8.2) g/dL Albumin (3.4-5.0) g/dL Globulin (2.0-3.5) g/dL Albumin/Globulin Ratio (1.3-2.8) Amylase (25-115) U/L Lipase 472 H (73-393) U/L Med Orders - Current: Current Medications Diphenhydramine HCl (Benadryl) 25 mg IVPUSH Q4H PRN PRN Reason: Itching Hydromorphone HCl (Dilaudid Director Transition 6 Mg In Ns 30 Ml) 6 mg IV ASDIRECTED PRN; Protocol PRN Reason: Abdominal Pain Last Admin: 02/21/18 09:05 Dose: 6 mg Lactated Ringer's (Ringers, Lactated) 1,000 mls @ 200 mls/hr IV ASDIRECTED [facility] Last Admin: 02/20/18 22:54 Dose: 200 mls/hr Piperacillin Sod/Tazobactam (Sod 3.375 gm/ Sodium Chloride) 50 mls @ 100 mls/ hr IV Q6H [facility] Metoclopramide HCl (Reglan) 5 mg IVPUSH Q6H PRN PRN Reason: Nausea Nystatin (Mycostatin) 5 ml PO QID [facility] Last Admin: 02/21/18 13:36 Dose: 5 ml Ondansetron HCl (Zofran) 4 mg IVPUSH Q6H PRN PRN Reason: Nausea/Vomiting Pantoprazole Sodium (Protonix Iv) 40 mg IVPUSH DAILY [facility] Last Admin: 02/21/18 09:03 Dose: 40 mg Promethazine HCl (Phenergan) 25 mg IM Q6H PRN PRN Reason: Nausea Sodium Chloride (Saline Flush) 10 ml FLUSH ASDIRECTED PRN PRN Reason: Keep Vein Open Last Admin: 02/20/18 19:04 Dose: 10 ml Sodium Chloride (Saline Flush) 2.5 ml FLUSH ASDIRECTED PRN PRN Reason: Keep Vein Open Last Admin: 02/20/18 19:05 Dose: 2.5 ml Sodium Chloride (Saline Flush) 10 ml FLUSH ASDIRECTED PRN PRN Reason: Keep Vein Open Sodium Chloride (Saline Flush) 2.5 ml FLUSH ASDIRECTED PRN PRN Reason: Keep Vein Open Discontinued Medications Hydromorphone HCl (Dilaudid Director Transition 6 Mg In Ns 30 Ml) 6 mg IV ASDIRECTED PRN; Protocol PRN Reason: Abdominal Pain Hydromorphone HCl (Dilaudid) 0.5 mg IVPUSH ONETIME ONE Stop: 02/20/18 21:48 Last Admin: 02/20/18 22:12 Dose: 0.5 mg Hydromorphone HCl (Dilaudid) 1 mg IVPUSH Q1H PRN PRN Reason: Pain Last Admin: 02/21/18 07:24 Dose: 1 mg Sodium Chloride (Normal Saline) 1,000 mls @ 999 mls/hr IV STAT ONE Stop: 02/20/18 22:09 Last Admin: 02/20/18 21:13 Dose: 999 mls/hr Piperacillin Sod/Tazobactam (Sod 3.375 gm/ Sodium Chloride) 50 mls @ 100 mls/ hr IV Q8H [facility] Last Admin: 02/21/18 07:11 Dose: 100 mls/hr Potassium Phosphate 30 mmole/ (Sodium Chloride) 510 mls @ 127.5 mls/hr IV NOW ONE Stop: 02/20/18 23:14 Last Admin: 02/20/18 23:40 Dose: Not Given Potassium Phosphate 15 mmole/ (Sodium Chloride) 255 mls @ 127.5 mls/hr IV Q2H [facility] Stop: 02/21/18 03:59 Last Admin: 02/21/18 02:36 Dose: 127.5 mls/hr Piperacillin Sod/Tazobactam (Sod 3.375 gm/ Sodium Chloride) 50 mls @ 100 mls/ hr IV Q6H [facility] Lactated Ringer's (Ringers, Lactated) 1,000 mls @ 1,000 mls/hr IV .BOLUS ONE Stop: 02/21/18 11:07 Last Admin: 02/21/18 13:35 Dose: 1,000 mls/hr Magnesium Sulfate 4 gm/ Premix 100 mls @ 50 mls/hr IV ONETIME ONE Stop: 02/21/18 12:10 Last Admin: 02/21/18 10:41 Dose: 50 mls/hr Iopamidol ([id number] (76%)) 100 ml IVPUSH ONETIME STA Stop: 02/20/18 20:04 Last Admin: 02/20/18 20:15 Dose: 100 ml Metoclopramide HCl (Reglan) 5 mg IV Q6H PRN PRN Reason: Nausea Morphine Sulfate (Morphine) 4 mg IVPUSH ONETIME ONE Stop: 02/20/18 18:15 Last Admin: 02/20/18 18:20 Dose: 4 mg Morphine Sulfate (Morphine) 4 mg IVPUSH ONETIME ONE Stop: 02/20/18 18:58 Last Admin: 02/20/18 19:03 Dose: 4 mg Morphine Sulfate (Morphine Director Transition 30 Mg In 30 Ml) 30 mg IV ASDIRECTED [facility]; Protocol Ondansetron HCl (Zofran) 4 mg IVPUSH ONETIME ONE Stop: 02/20/18 18:15 Last Admin: 02/20/18 18:20 Dose: 4 mg - Exam Quality Assessment: Reports: Supplemental Oxygen General: Reports: Alert, Oriented, Cooperative, Moderate Distress HEENT: Reports: Pupils Equal, Pupils Reactive. Denies: Scleral Icterus Neck: Reports: Supple, Trachea Midline Lungs: Reports: Clear to Auscultation, Normal Respiratory Effort. Denies: Wheezing Cardiovascular: Reports: Regular Rate, Regular Rhythm, No Murmurs, Tachycardia GI/Abdominal Exam: Soft, No Distention, Guarding, Tender, Abnormal Bowel Sounds (hypoactive) (Female) Exam: Deferred Rectal (Female) Exam: Deferred Back Exam: Reports: Normal Inspection Extremities: Normal Inspection, No Pedal Edema, Normal Capillary Refill. No: May's Sign Skin: Reports: Warm, Dry, Intact Wound/Incisions: Reports: Healing Well Neurological: Reports: No New Focal Deficit Psy/Mental Status: Reports: Alert, Normal Affect, Normal Mood
[2018-02-21 15:41] VITALS: BP 138/85
--- NOTE | 2018-02-21 20:21 | CT ---
EXAM DATE: 02/20/18 PATIENT'S AGE: 32 Patient: KIERA BUSBY Facility: [place], [place] Site . Site : 1985 Study: CT Abdomen/Pelvis [id number]/13/2018 8:23:57 PM Ordering Physician: Leander Laureano Final Report: HISTORY: Abdominal pain and vomiting. TECHNIQUE: Intravenous contrast enhanced CT of the abdomen and pelvis. 100 mL of Isovue- 370 intravenous contrast administered. COMPARISON: 01/12/2018. FINDINGS: The patient is status post cholecystectomy. There is fluid within the gallbladder fossa but also fluid present adjacent to the liver, within the right abdomen and anterior and posterior aspects of the pelvis. Possibility of a bile leak should be considered. Infected fluid not excluded. There is mild prominence of the biliary system which could relate to postcholecystectomy reservoir effect. There is no focal liver mass. - Spleen size is upper limits of normal. The adrenal glands are normal. No focal pancreatic abnormality or acute peripancreatic inflammatory change. Symmetric nephrograms. No renal mass or hydronephrosis. Urinary bladder is not well evaluated. - Postsurgical changes of gastric bypass. There is no small bowel obstruction. No colonic obstruction. No abdominal aortic aneurysm. - Mild dependent atelectasis within both lungs. IMPRESSION: 1. Changes of recent cholecystectomy. 2. Fluid within the gallbladder fossa, abdomen and pelvis. Possibility of a bile leak should be considered and could be further evaluated for with a nuclear medicine hepatobiliary scan if clinically indicated. Reactive or infected fluid would be additional considerations. 3. Mild prominence of the biliary system may relate to postcholecystectomy reservoir effect. 4. Postsurgical changes of prior gastric bypass. No bowel obstruction. Dictated by Greg Nathan MD @ 02/20/2018 8:53:22 PM Please note that all CT scans at this facility use dose modulation, iterative reconstruction, and/or weight-based dosing when appropriate to reduce radiation dose to as low as reasonably achievable. Dictated by: Greg Nathan MD @ 02/20/2018 20:53:28 (Electronic Signature) Report Signed by Proxy. [facility]OSPITALPaul
== END 2018-02-21 16:30 ==
LOC: MW.ED 18:06 → INTOOBSV 21:30 → MW.MS 21:30
PROVIDERS: ADMIT Surgery; ATTEND Surgery
DX: K91.89 Other postprocedural complications and disorders of digestive system (principal); K83.8 Other specified diseases of biliary tract; K85.90 Acute pancreatitis without necrosis or infection, unspecified; G89.18 Other acute postprocedural pain; Z79.3 Long term (current) use of hormonal contraceptives; F32.9 Major depressive disorder, single episode, unspecified; F17.210 Nicotine dependence, cigarettes, uncomplicated; E66.9 Obesity, unspecified; Z68.29 Body mass index [BMI] 29.0-29.9, adult; Z79.891 Long term (current) use of opiate analgesic; Z79.899 Other long term (current) drug therapy; Z98.84 Bariatric surgery status; Z90.49 Acquired absence of other specified parts of digestive tract
CPT/HCPCS: 36415; 74177; 78227; 80053; 82150; 83690; 83735; 84100; 85025; 96361; 96365; 96366; 96367; 96375; 96376; 99285; A9270; C9113; G0378; J1170; J2270; J2405; J2543; J3475; J7040; J7050; J7120; Q9967; 96374; 99283

== ENCOUNTER 2021-01-10 19:16 | Emergency (ER) | payer OTHER ==
--- NOTE | 2021-01-10 20:19 | CR ---
INDICATION: Cough COMPARISON: None available. FINDINGS: PA and lateral views of the chest were obtained. The lungs are clear. No focal or diffuse infiltrates are present. The heart is normal in size. The mediastinum is normal in appearance. The osseous structures are normal in appearance for the patient`s age. IMPRESSION: Normal chest 2 views. Dictated by Humlbe Padilla MD @ Jan 10 2021 8:18PM Signed by Dr. Humble Padilla @ Jan 10 2021 8:18PM
[2021-01-10 20:37] LABS: CORONAVIRUS COVID-19 NAA NEGATIVE (NEGATIVE); INFLUENZA A NAA NEGATIVE (NEGATIVE); INFLUENZA B NAA NEGATIVE (NEGATIVE)
--- NOTE | 2021-01-10 21:42 | EDM.PDOC ---
ED HPI GENERAL MEDICAL PROBLEM - General Chief Complaint: ENT Problem Stated Complaint: SINUS INFECTION, COUGH Time Seen by Provider: 01/10/21 19:37 Source of Information: Reports: Patient History Limitations: Reports: No Limitations - History of Present Illness INITIAL COMMENTS - FREE TEXT/NARRATIVE: HISTORY AND PHYSICAL: History of present illness: Patient is a 35-year-old male who presents to the ED today with concern of cough, nasal congestion over the past several days. Patient states that she was seen yesterday at the walk-in clinic and was given amoxicillin for acute sinusitis. Patient states she was also given a coughing syrup which she states mildly helps with her cough. Patient states she came to the emergency room today because she continues to have "coughing spells "in which she cannot stop the coughing and she starts to feel short of breath during the coughing spell. Patient states she will also coughed so hard that she gags but states that she has not vomited. Patient states that she believes she is fully vaccinated but is unsure of this. Patient denies any other associated symptoms. Patient denies any health history. Patient denies fever, chills, chest pain, shortness of breath, or cough. Denies headache, neck stiff ness, change in vision, syncope, or near syncope. Denies nausea, vomiting, abdominal pain, diarrhea, constipation, or dysuria. Has not noted any blood in urine or stool. Patient has been eating and drinking appropriately. Review of systems: As per history of present illness and below otherwise all systems reviewed and negative. Past medical history: As per history of present illness and as reviewed below otherwise noncontributory. Surgical history: As per history of present illness and as reviewed below otherwise noncontributory. Social history: See social history for further information Family history: As per history of present illness and as reviewed below otherwise noncontributory. Physical exam: General: Patient is alert, oriented, and in no acute distress. Patient sitting comfortably on exam table. Vitals stable and reviewed by me. HEENT: Bilateral clear nasal drainage. Otherwise, atraumatic, normocephalic, pupils equal and reactive bilaterally, negative for conjunctival pallor or scleral icterus, mucous membranes moist, TMs normal bilaterally, throat clear, neck supple, nontender, trachea midline. No drooling or trismus noted. No meningeal signs. No hot potato voice noted. Lungs: Clear to auscultation, breath sounds equal bilaterally, chest nontender. Heart: S1S2, regular rate and rhythm without overt murmur Abdomen: Soft, nondistended, nontender. Negative for masses or hepatosplenomegaly. Negative for costovertebral tenderness. Pelvis: Stable nontender. Genitourinary: Deferred. Rectal: Deferred. Skin: Intact, warm, dry. No lesions or rashes noted. Extremities: Atraumatic, negative for cords or calf pain. Neurovascular unremarkable. Neuro: Awake, alert, oriented. Cranial nerves II through XII unremarkable. Cerebellum unremarkable. Motor and sensory unremarkable throughout. Exam nonfocal. Notes: Signs and symptoms that were prompt return to the ED thoroughly discussed with patient. Discussed importance for follow-up with her primary care provider. Voices understanding and is agreeable to plan of care. Denies any further questions or concerns at this time. Diagnostics: CXR 2 V, Pertussis, COVID/FLu Therapeutics: None Prescription: Proair inhaler Impression: Cough Viral illness Plan: 1. Use cough drops and/or other over the counter medications as needed as discussed. Drink small but frequent sips of fluid to prevent dehydration. 2. Alternate Ibuprofen and Tylenol as directed for pain and discomfort. 3. Follow up with your primary care provider as discussed. Take medications as prescribed. 4. Return to the ED as needed and as discussed. Definitive disposition and diagnosis as appropriate pending reevaluation and review of above. Back Pain Score (Numeric/FACES): 8 - Related Data Allergies Allergy/AdvReac Type Severity Reaction Status Date / Time No Known Allergies Allergy Verified 01/10/21 19:34 Home Meds: Home Meds Drospirenone/Ethinyl Estradiol [Kate 28] 1 tab PO DAILY 09/08/14 [History] Albuterol Sulfate [Proair Hfa] 8.5 gm IH Q8HR PRN #1 [id number] 01/10/21 [Rx] Amoxicillin/Potassium Clav [Amox-Clav 875-125 mg Tablet] 1 tab PO BID 01/10/21 [History] Codeine Phosphate/Guaifenesin [Guaifen-Codeine 100-10 mg/5 ml] ASDIRECTED 12/01 [History] Past Medical History - Past Health History Medical/Surgical History: Denies Medical/Surgical History HEENT History: Reports: Other (See Below) Other HEENT History: wears glasses Cardiovascular History: Reports: None Respiratory History: Reports: None Gastrointestinal History: Reports: None Genitourinary History: Reports: None [employer] History: Reports: Musculoskeletal History: Reports: None Neurological History: Reports: Other (See Below) Psychiatric History: Reports: Anxiety, Depression, Suicide Attempt Endocrine/Metabolic History: Reports: Obesity/BMI 30+ Hematologic History: Reports: Anemia, Blood Transfusion(s) Immunologic History: Reports: None Oncologic (Cancer) History: Reports: None Dermatologic History: Reports: None - Infectious Disease History Infectious Disease History: Reports: Chicken Pox - Past Surgical History Head Surgeries/Procedures: Reports: None HEENT Surgical History: Reports: None Cardiovascular Surgical History: Reports: None Respiratory Surgical History: Reports: Lung Biopsies GI Surgical History: Reports: Bariatric Procedure, Cholecystectomy Other GI Surgeries/Procedures: Gastric bypass surgery Female Surgical History: Reports: Section Other Female Surgeries/Procedures: c section x 2 Endocrine Surgical History: Reports: None Neurological Surgical History: Reports: None Musculoskeletal Surgical History: Reports: None Oncologic Surgical History: Reports: None Dermatological Surgical History: Reports: None Social & Family History - Family History Family Medical History: No Pertinent Family History - Caffeine Use Caffeine Use: Reports: Coffee - Recreational Drug Use Recreational Drug Use: No ED ROS GENERAL - Review of Systems Review Of Systems: Comprehensive ROS is negative, except as noted in HPI. ED EXAM, GENERAL - Physical Exam Exam: See Below (see dictation) Course - Vital Signs Last Recorded V/S: Last Vital Signs Temp 97.6 F 01/10/21 21:53 Pulse 71 01/10/21 21:53 Resp 18 01/10/21 21:53 BP 113/70 01/10/21 21:53 Pulse Ox 96 01/10/21 21:53 - Orders/Labs/Meds Orders: Active Orders 24 hr Category Date Time Status B PERTUSSIS IGG/M/A AB [REF] Stat Lab 01/10/21 19:53 Ordered BORD PERTUSS NUCLEIC ACID AMP [MREF] Stat Lab 01/10/21 19:53 Received Labs: Laboratory Tests 01/10/21 Range/Units 19:53 Influenza Type A RNA NEGATIVE (NEGATIVE) Influenza Type B RNA NEGATIVE (NEGATIVE) SARS-CoV-2 RNA (MELI) NEGATIVE (NEGATIVE) Departure - Departure Time of Disposition: 21:41 Disposition: Home, Self-Care 01 Clinical Impression: Cough, Viral syndrome - Discharge Information Prescriptions: Albuterol Sulfate [Proair Hfa] 8.5 gm IH Q8HR PRN #1 [id number].aer.ad PRN Reason: Cough Instructions: Cough, Adult, [id number] Referrals: PCP,None [Primary Care Provider] - Forms: ED Department Discharge Additional Instructions: The following information is given to patients seen in the emergency department who are being discharged to home. This information is to outline your options for follow-up care. We provide all patients seen in our emergency department with a follow-up referral. The need for follow-up, as well as the timing and circumstances, are variable depending upon the specifics of your emergency department visit. If you don't have a primary care physician on staff, we will provide you with a referral. We always advise you to contact your personal physician following an emergency department visit to inform them of the circumstance of the visit and for follow-up with them and/or the need for any referrals to a consulting specialist. The emergency department will also refer you to a specialist when appropriate. This referral assures that you have the opportunity for follow-up care with a specialist. All of these measure are taken in an effort to provide you with optimal care, which includes your follow-up. Under all circumstances we always encourage you to contact your private physician who remains a resource for coordinating your care. When calling for follow-up care, please make the office aware that this follow-up is from your recent emergency room visit. If for any reason you are refused follow-up, please contact the [facility] Emergency Department at and asked to speak to the emergency department charge nurse. [facility] [address] [place] [id number] [address] [id number] 1. Use cough drops and/or other over the counter medications as needed as discussed. Drink small but frequent sips of fluid to prevent dehydration. 2. Alternate Ibuprofen and Tylenol as directed for pain and discomfort. 3. Follow up with your primary care provider as discussed. Take medications as prescribed. 4. Return to the ED as needed and as discussed. Sepsis Event Note (ED) - Evaluation Sepsis Screening Result: No Definite Risk - Focused Exam Vital Signs: Vital Signs Temp Pulse Resp BP Pulse Ox 01/10/21 21:53 97.6 F 71 18 113/70 96 01/10/21 19:37 97.0 F 65 18 123/89 96 - My Orders Last 24 Hours: My Active Orders 01/10/21 19:53 B PERTUSSIS IGG/M/A AB [REF] Stat BORD PERTUSS NUCLEIC ACID AMP [MREF] Stat - Assessment/Plan Last 24 Hours: My Active Orders 01/10/21 19:53 B PERTUSSIS IGG/M/A AB [REF] Stat BORD PERTUSS NUCLEIC ACID AMP [MREF] Stat
[2021-01-10 21:53] VITALS: BP 113/70; PULSE 71
== END 2021-01-10 22:34 | disposition home or self-care (01) ==
LOC: MW.ED 19:16
DX: B34.9 Viral infection, unspecified (principal); E66.9 Obesity, unspecified; Z68.29 Body mass index [BMI] 29.0-29.9, adult; Z20.822 Contact with and (suspected) exposure to COVID-19
CPT/HCPCS: 0240U; 71046; 99283; 87798; 99282